=== PATIENT | female | born 1935 | race Caucasian/White ===

== ENCOUNTER 2021-03-30 23:58 | Inpatient (IN) | payer MEDICARE ==
--- NOTE | 2021-03-31 00:03 | ED ---
Recheck HPI - General Stated Complaint: Tachycardia Time Seen by Provider: 03/31/21 00:02 Source: RN notes reviewed, old records reviewed Limitations: no limitations - History of Present Illness Initial Comments: This is a 85-year-old female to the ER for evaluation. Patient presents today for evaluation regards to recheck and reevaluation, patient has recent diagnosis of atrial fibrillation, she is on anticoagulation presented for A. fib today but was having also runs of ventricular tachycardia prior hospital. Patient presents here on amiodarone in normal sinus rhythm. Patient herself is without current complaint now. MD Complaint: other (Patient with runs of ventricular tachycardia) -: hour(s) Initial Visit For: other (Not feeling well, palpitations) Returns Today for: other (Abnormal heart rate) Symptoms Since Prior Visit: no new symptoms Context: other (Ventricular tachycardia is resolved here) Associated Symptoms: shortness of breath, malaise Treatments Prior to Arrival: other medications Review of Systems ROS Statement: Those systems with pertinent positive or pertinent negative responses have been documented in the HPI. ROS Other: All systems not noted in ROS Statement are negative. General Exam General appearance: alert, in no apparent distress Head exam: Present: atraumatic, normocephalic, normal inspection Eye exam: Present: normal appearance, PERRL, EOMI. Absent: scleral icterus, conjunctival injection, periorbital swelling ENT exam: Present: normal exam, mucous membranes moist Neck exam: Present: normal inspection. Absent: tenderness, meningismus, lymphad enopathy Respiratory exam: Present: normal lung sounds bilaterally. Absent: respiratory distress, wheezes, rales, rhonchi, stridor Cardiovascular Exam: Present: regular rate, normal rhythm, normal heart sounds. Absent: systolic murmur, diastolic murmur, rubs, gallop, clicks GI/Abdominal exam: Present: soft, normal bowel sounds. Absent: distended, tenderness, guarding, rebound, rigid Extremities exam: Present: normal inspection, full ROM, normal capillary refill. Absent: tenderness, pedal edema, joint swelling, calf tenderness Back exam: Present: normal inspection Neurological exam: Present: alert, oriented X3, CN II-XII intact Psychiatric exam: Present: normal affect, normal mood Skin exam: Present: warm, dry, intact, normal color. Absent: rash Course Vital Signs 03/31/21 03/31/21 00:01 00:10 Temperature 98.0 F Pulse Rate 60 Respiratory 16 28 H Rate Blood Pressure 112/48 O2 Sat by Pulse 100 Oximetry - Reevaluation(s) Reevaluation #1: 03/31/21 00:35 Medical record is reviewed 03/31/21 00:35 Transfer paperwork is reviewed Reevaluation #2: 03/31/21 00:35 Patient currently asymptomatic, no complaints no chest pain - Consultations Consultation #1: Spoke with Dr. Gandhi who agrees to admit the patient Medical Decision Making - Medical Decision Making 85 female DF for evaluation. Patient has atrial fibrillation with recent runs of ventricular tachycardia currently in normal sinus rhythm. Patient will be admitted on continuation of amiodarone and cardiology to see - EKG Data -: EKG Interpreted by Me (EKG shows sinus rhythm 60 AZ 174 QRS 90 QTC 446) Disposition Clinical Impression: Ventricular tachycardia, Atrial fibrillation Disposition: ADMITTED IP TO THIS HOSP Condition: Good Is patient prescribed a controlled substance at d/c from ED?: No Referrals: None,Stated [REFERRING] - 1-2 days
[2021-03-31] MEDS ORDERED: NITROGLYCERIN SL TABS 0.4 MG TAB SUBLINGUAL PRN (00:36)
[2021-03-31] MEDS ORDERED: NALOXONE 0.4 MG/ML 1 ML VIAL IV PRN (00:36)
[2021-03-31] MEDS ORDERED: MORPHINE SULFATE 4 MG/ML SYRINGE IV PRN (00:36)
[2021-03-31] MEDS: DEXTROSE 5% IN WATER 250 ML with AMIODARONE 300 MG IV ONE (01:30)
[2021-03-31] MEDS ORDERED: HEPARIN SODIUM 1,000 UN/ML (10ML VL) IV PRN ×2 (03:00→03:39)
[2021-03-31] MEDS ORDERED: HEPARIN SODIUM 1,000 UN/ML (10ML VL) IV ONE (03:00)
[2021-03-31] MEDS ORDERED: HEPARIN SOD,PORK IN 0.45% NACL 25,000 UNIT in 0.45% NACL 1 250ML.BAG IV SCH (03:00)
--- NOTE | 2021-03-31 03:40 | P.HPIM ---
History of Present Illness H&P Date: 03/31/21 The patient is a 85-year-old female with a PMH of Chelsi Cody was transferred from [facility] where she had presented earlier tonight with complaints of sudden onset of shortness of breath. Patient reports that she had been in her usual state of health until about 6 PM tonight when she suddenly developed new chest breath. She denied ever having such symptoms in the past and became alarmed when it persisted for several minutes, at which time she activated EMS. The patient was noted to be in V. tach for which she was given amiodarone. The patient was subsequently transferred for cardiology evaluation. She underwent an extensive evaluation in the [facility] which was all reviewed with WBC count 7.2, hemoglobin 10.1, platelets 220, glucose 121, BUN 46, creatinine 1.4, sodium 136, potassium 3.8, chloride 102, CO2 18, magnesium 1.5, and troponin T 0.03. At time of interview, the patient reports that her shortness of breath had resolved soon after arriving at [facility] and has not recurred since. She reported feeling back to her baseline and denied any active complaints. She denied chest discomfort, nausea, vomiting, and dizziness. Also denied fever, chills, cough. Denied weakness, numbness, tingling, visual disturbance. EKG performed at our facility revealed normal sinus rhythm at 60 bpm with voltage criteria for LVH and T-wave inversions in leads V1 and V2. Laboratory evaluation was remarkable for troponin of 0.111. Review of systems: Pertinent positives and negatives as discussed in HPI, a complete review of systems was performed and all other systems are negative. Physical examination: General: non toxic, no distress, appears at stated age, normal weight Derm: no unusual rashes/lesions no unusual ecchymoses, warm, dry Head: atraumatic, normocephalic, symmetric Eyes: EOMI, no lid lag, anicteric sclera, pupils equal round reactive to light ENT: Nose and ears atraumatic, no thrush, no pharyngeal erythema Neck: No thyromegaly, no cervical lymphadenopathy, trachea midline, supple Mouth: no lip lesion, mucus membranes moist Cardiovascular: S1S2 reg, no murmur, positive posterior tibial pulse bilateral, no edema, capillary refill less than 2 seconds Lungs: CTA bilateral, no rhonchi, no rales , no accessory muscle use Abdominal: soft, nontender to palpation, no guarding, no appreciable organomegaly, normal bowel sounds Ext: no gross muscle atrophy, muscle strength 5 out of 5 in all 4 extremities grossly, no contractures, Neuro: CN II-XI grossly intact, light touch intact all 4 extremities, finger to nose within normal limits, Psych: Alert, oriented, appropriate affect Assessment/plan Symptomatic ventricular tachycardia -Continue with amiodarone infusion -Cardiology consult -Cardiac monitoring -Fall precautions Troponin elevation, may be secondary to ventricular tachycardia - unable to rule out non-ST elevation NH at this time -Patient took her last Eliquis dose on 03/30 9 AM -Continue with heparin infusion and aspirin at this time -Cardiac monitoring Chronic conditions: A. fib -Hold Eliquis at this time DVT prophylaxis -Heparin infusion The patient is admitted with an anticipated greater than 2 midnight stay for evaluation of V-tach CODE STATUS: No Code Discussed with: Patient Anticipated discharge date: 2-[address]: Home Past Medical History Past Medical History: Atrial Fibrillation, Hyperlipidemia, Hypertension, Thyroid Disorder Additional Past Surgical History / Comment(s): gallbladder removal - states 60yrs ago. Smoking Status: Light tobacco smoker Past Alcohol Use History: None Reported Past Drug Use History: None Reported - Past Family History Mother Family Medical History: Cancer Medications and Allergies Allergies Allergy/AdvReac Type Severity Reaction Status Date / Time No Known Allergies Allergy Verified 03/31/21 00:44 Physical Exam Vitals: Vital Signs Temp Pulse Resp BP Pulse Ox 03/31/21 01:39 67 17 105/55 100 03/31/21 00:10 28 H 03/31/21 00:01 98.0 F 60 16 112/48 100 Intake and Output 03/30/21 03/30/21 03/31/21 14:59 22:59 06:59 Other: Weight 58.967 kg Results Labs: Abnormal Lab Results - Last 24 Hours (Table) 03/31/21 Range/Units 00:53 Troponin I 0.111 H* (0.000-0.034) ng/mL
--- NOTE | 2021-03-31 03:58 | P.PN ---
Progress Note - Text Progress Note Date: 03/31/21 Advanced Care Planning: Diagnoses: Ventricle tachycardia Discussion: Person(s) present and participating in discussion: Patient Summary: Discussed the patient's goals of care in great detail. The patient reported she has previously filled out paperwork outlining her wishes. She reported that in the event of a cardiac arrest, that she would not like to undergo CPR or be placed on life support. She notes however that as long as she has a pulse, she would be okay with a trial of other forms of life support on a temporary basis. She notes that if she is unable to communicate, that she would like us to reach out to her family for further assistance. The patient understands that she experienced a cardiac arrhythmia and that if she was to undergo cardiac arrest, that she should be allowed to pass peacefully. Discussed the different forms of life support offered and the caveats of CPR. Will make the patient a No-Code with instructions. A total of 16 minutes of face to face time was spent discussing advanced care planning.
[2021-03-31 04:00] LABS: Basophils % (A) 1 %; Eosinophils # (A) 0.1 k/uL (0-0.7); Eosinophils % (A) 2 %; HCT 26.6 % (34.0-46.0); HGB 8.5 gm/dL (11.4-16.0); Hypochromasia Slight; Lymphocytes # (A) 0.9 k/uL (1.0-4.8); Lymphocytes % (A) 18 %; MCH 30.5 pg (25.0-35.0); MCHC 31.8 g/dL (31.0-37.0); MCV 95.9 fL (80.0-100.0); Mean Platelet Volume 8.7; Monocytes # (A) 0.3 k/uL (0-1.0); Monocytes % (A) 6 %; Neutrophils # (A) 3.7 k/uL (1.3-7.7); Neutrophils % (A) 72 %; Platelet Count 146 k/uL (150-450); RBC 2.77 m/uL (3.80-5.40); RDW 15.5 % (11.5-15.5); WBC 5.1 k/uL (3.8-10.6)
[2021-03-31 04:25] LABS: INR 1.1 (<1.2); Prothrombin Time 11.8 sec (9.0-12.0)
[2021-03-31 04:28] LABS: Partial Thromboplastin Time >200.0 sec (22.0-30.0)
[2021-03-31] MEDS: HEPARIN SOD,PORK IN 0.45% NACL 25,000 UNIT in 0.45% NACL 1 250ML.BAG IV SCH (05:52)
[2021-03-31] MEDS: AMIODARONE 450 MG in DEXTROSE 5% IN WATER 250 ML IV SCH ×2 (09:11)
[2021-03-31] MEDS ORDERED: ALPRAZolam 0.5 MG TAB PO PRN (09:20)
[2021-03-31] MEDS ORDERED: ALPRAZolam 0.25 MG TAB PO PRN (09:20)
[2021-03-31 09:36] LABS: Calcium 8.8 mg/dL (8.4-10.2); Magnesium 2.1 mg/dL (1.6-2.3); Potassium 4.4 mmol/L (3.5-5.1)
[2021-03-31] MEDS: METOPROLOL SUCCINATE (ER) 50 MG TAB.ER.24H PO SCH (10:01)
[2021-03-31] MEDS: ATORVASTATIN 20 MG TAB PO SCH (10:01)
--- NOTE | 2021-03-31 11:01 | ECHOF ---
Referral Reason:as, vt MEASUREMENTS -------- HEIGHT: 162.6 cm WEIGHT: 59.0 kg BP: IVSd: 1.5 cm (0.6 - 1.1) LVIDd: 3.6 cm (3.9 - 5.3) LVPWd: 1.4 cm (0.6 - 1.1) IVSs: 2.0 cm LVIDs: 2.1 cm LVPWs: 1.9 cm Ao Diam: 3.0 cm (2.0 - 3.7) AV Cusp: 1.3 cm (1.5 - 2.6) LA Diam: 3.4 cm (2.7 - 3.8) AV maxP.85 mmHg AV meanP.22 mmHg RAP: 5.00 mmHg RVSP: 32.45 mmHg FINDINGS -------- Limited Study The left ventricular size is normal. There is moderate concentric left ventricular hypertrophy. O verall left ventricular systolic function is normal with, an EF between 55 - 60 %. Aortic valve is trileaflet and is severely thickened. There is moderate aortic stenosis present. Peak/mean gradient across the Aortic Valve is 52.85mmHg / 31.22mmHg. There is no pericardial effusion. CONCLUSIONS -------- 1. The left ventricular size is normal. 2. There is moderate concentric left ventricular hypertrophy. 3. Overall left ventricular systolic function is normal with, an EF between 55 - 60 %. 4. Aortic valve is trileaflet and is severely thickened. 5. There is moderate aortic stenosis present. 6. Peak/mean gradient across the Aortic Valve is 52.85mmHg / 31.22mmHg. 7. There is no pericardial effusion. CUSTOMER SERVICES SUPERVISOR: Sveta Elmore, [facility]
[2021-03-31 12:38] LABS: Glucose,Whole Blood 89 mg/dL (75-99)
--- NOTE | 2021-03-31 13:07 | P.CRDCN ---
History of Present Illness History of present illness: HISTORY OF PRESENTING ILLNESS This is a pleasant 85-year-old female past medical history significant for paroxysmal atrial fibrillation on long-term anticoagulation with Eliquis, h ypertension, dyslipidemia, aortic stenosis and hypothyroidism. She follows in the office with Dr. Guzman. We have been asked to see in consultation for atrial fibrillation and ventricular tachycardia. She presented initially to [facility] after having an acute onset of shortness of breath and palpitations. She states this started yesterday at around 6 PM. She denies any associated chest discomfort and did have some mild dizziness. According to ER documentation the patient was noted to be having runs of nonsustained ventricular tachycardia per EMS and was started on IV amiodarone infusion at [facility] and transferred here for further evaluation. Since arriving here in the emergency department she has had no further episodes of ventricular tachycardia. Initial EKG reveals sinus mechanism heart rate of 60, LVH, T-wave inversions noted in the high lateral leads as well as septal leads. She did have an EKG performed in the office earlier this month and at that time she was in sinus rhythm and did have nonspecific mild T-wave abnormalities in the high lateral and septal leads. EKG from [facility] revealed she was having intermittent episodes of wide complex tachycardia longest run being documented at 9 beats. Laboratory data from [facility] reviewed, creatinine 1.4, potassium 3.8, magnesium 1.5, troponin negative 1, TSH 6.93 and free T4 1 0.4. She was given magnesium supplementation, potassium supplementation and amiodarone infusion and then transferred here. She is seen and examined sitting up in bed in no acute distress. She denies any further symptoms of shortness of breath or palpitations. Repeat laboratory data here reviewed, WBC 5.1, hemoglobin 8.5, platelets 146, troponin 0.111 and 0.155. She has been initiated on heparin infusion. Home cardiac medications include Eliquis 5 mg twice a day last dose was yesterday morning, Lasix 20 mg twice a day, aspirin 81 mg daily, Toprol 50 mg daily, rosuvastatin 10 mg daily, daily magnesium and potassium supplementation. Echocardiogram obtained in the office 03/02/2021 revealed preserved LV systolic function with ejection fraction 55%, mild concentric LVH, mild aortic regurgitation and moderate aortic stenosis with a mean gradient across the valve of 23 mmHg and a valve area of 1.4 cm, mild mitral regurgitation and mild tricuspid regurgitation. REVIEW OF SYSTEMS At the time of my exam: CONSTITUTIONAL: Denies fever or chills. CARDIOVASCULAR: Denies chest pain, shortness of breath, orthopnea, PND or palpitations. RESPIRATORY: Denies cough. GASTROINTESTINAL: Denies abdominal pain, diarrhea, constipation, nausea or vomiting. MUSCULOSKELETAL: Denies myalgias. NEUROLOGIC: Denies numbness, tingling, headacbe or weakness. ENDOCRINE: Denies fatigue, weight change, polydipsia or polyurina. GENITOURINARY: Denies burning, hematuria or urgency with micturation. HEMATOLOGIC: Denies history of anemia or bleeding. PHYSICAL EXAMINATION Blood pressure 123/51 heart rate 60 afebrile and maintaining oxygen saturation on nasal cannula. CONSTITUTIONAL: No apparent distress. HEENT: Head is normocephalic. Pupils are equal, round. Sclerae anicteric. Mucous membranes of the mouth are moist. No JVD. No carotid bruit. CHEST EXAMINATION: Lungs are clear to auscultation. No chest wall tenderness is noted on palpation or with deep breathing. HEART EXAMINATION: Regular rate and rhythm. S1, S2 heard. Systolic ejection murmur at the base, no gallops or rub. ABDOMEN: Soft, nontender. Positive bowel sounds. EXTREMITIES: 2+ peripheral pulses, no lower extremity edema and no calf tenderness. NEUROLOGIC EXAMINATION: Patient is awake, alert and oriented x3. ASSESSMENT Shortness of breath and palpitations. Non-sustained ventricular tachycardia Paroxysmal atrial fibrillation on eliquis, currently in SR. NSTEMI Anemia Hypertension Dyslipidemia Aortic stenosis, moderate Hypothyroidism PLAN Continue amiodaroine infusion and then PO thereafter. Obtain repeat troponin to assess trend. Recommend proceeding with cardiac catheterization. I have discussed the risks, benefits and alternative therapies for the above-mentioned procedure and for both sedation/analgesia as well as necessary blood product administration, if indicated, as they pertain to this patient. The patient has indicated understanding and acceptance of the risks and procedures discussed. Questions have been answered appropriately and she is agreeable to move forward with the above stated procedure. Questions have been answered appropriately and she is agreeable to move forward with the above stated procedure. Continue heparin infusion. NPO after midnight tonight. Further recommendations to follow based on clinical course. Thank you kindly for this consultation. Nurse Practitioner note has been reviewed, I agree with a documented findings and plan of care. Patient was seen and examined. Past Medical History Past Medical History: Atrial Fibrillation, Hyperlipidemia, Hypertension, Thyroid Disorder Additional Past Surgical History / Comment(s): gallbladder removal - states 60yrs ago. Smoking Status: Light tobacco smoker Past Alcohol Use History: None Reported Past Drug Use History: None Reported - Past Family History Mother Family Medical History: Cancer Medications and Allergies Home Medications Medication Instructions Recorded Confirmed Type Apixaban [Eliquis] 5 mg PO BID 03/31/21 03/31/21 History Aspirin EC [Ecotrin Low Dose] 81 mg PO DAILY 03/31/21 03/31/21 History Furosemide [Lasix] 20 mg PO BID 03/31/21 03/31/21 History Levothyroxine Sodium [Synthroid] 75 mcg PO DAILY 03/31/21 03/31/21 History Magnesium 250 mg PO DAILY 03/31/21 03/31/21 History Metoprolol Succinate (ER) [Toprol 50 mg PO DAILY 03/31/21 03/31/21 History Xl] Potassium Chloride ER [K-Dur 20] 20 meq PO BID 03/31/21 03/31/21 History Rosuvastatin [Crestor] 10 mg PO DAILY 03/31/21 03/31/21 History Sertraline [Zoloft] 25 mg PO DAILY 03/31/21 03/31/21 History Allergies Allergy/AdvReac Type Severity Reaction Status Date / Time No Known Allergies Allergy Verified 03/31/21 08:16 Physical Exam Vitals: Vital Signs Temp Pulse Resp BP Pulse Ox 03/31/21 06:20 60 18 123/51 99 03/31/21 05:40 97.8 F 58 L 16 123/51 100 03/31/21 03:26 61 16 100/60 100 03/31/21 01:39 67 17 105/55 100 03/31/21 00:10 28 H 03/31/21 00:01 98.0 F 60 16 112/48 100 Intake and Output 03/30/21 03/31/21 03/31/21 22:59 06:59 14:59 Intake Total 8.255 Balance 8.255 Intake: Intake, IV Titration 8.255 Amount Heparin Sod,Pork in 0.45% 8.255 NaCl 25,000 unit In 0.45 % NaCl 1 250ml.bag @ 12 UNITS/KG/HR 7.076 mls/hr IV .Q24H [facility] Rx#: [id number] Other: Weight 58.967 kg Results 03/31/21 03:22 03/31/21 08:15 Cardiac Enzymes 03/31/21 03/31/21 Range/Units 00:53 03:22 Troponin I 0.111 H* 0.155 H* (0.000-0.034) ng/mL Coagulation 03/31/21 Range/Units 03:22 PT 11.8 (9.0-12.0) sec APTT >200.0 H* (22.0-30.0) sec CBC 03/31/21 Range/Units 03:22 WBC 5.1 (3.8-10.6) k/uL RBC 2.77 L (3.80-5.40) m/uL Hgb 8.5 L (11.4-16.0) gm/dL Hct 26.6 L (34.0-46.0) % Plt Count 146 L (150-450) k/uL Current Medications Generic Name Dose Route Start Last Admin Trade Name Freq PRN Reason Stop Dose Admin Aspirin 325 mg 04/01/21 09:00 Aspirin 325 Mg Tab PO DAILY [facility] Heparin Sodium (Porcine) 0 unit 03/31/21 03:39 Heparin Sodium 1,000 Un/Ml (10ml Vl) IV PER PROTOCOL PRN Low PTT Protocol Heparin Sodium/Sodium Chloride 250 mls @ 7.076 mls/hr 03/31/21 03:45 03/31/21 05:52 25,000 unit/ Sodium Chloride IV 9 units/kg/hr .Q24H [facility] 5.307 mls/hr Administration Protocol 12 UNITS/KG/HR Amiodarone HCl 450 mg/ 250 mls @ 16.667 mls/hr 03/31/21 15:00 Dextrose/Water IV 04/01/21 08:59 .Q15H [facility] Protocol 0.5 MG/MIN Morphine Sulfate 4 mg 03/31/21 00:36 Morphine Sulfate 4 Mg/Ml Syringe IV Q4HR PRN Chest Pain Naloxone HCl 0.2 mg 03/31/21 00:36 Naloxone 0.4 Mg/Ml 1 Ml Vial IV Q2M PRN Opioid Reversal Nitroglycerin 0.4 mg 03/31/21 00:36 Nitroglycerin Sl Tabs 0.4 Mg Tab SUBLINGUAL Q5M PRN Chest Pain Intake and Output 03/30/21 03/31/21 03/31/21 22:59 06:59 14:59 Intake Total 8.255 Balance 8.255 Intake: Intake, IV Titration 8.255 Amount Heparin Sod,Pork in 0.45% 8.255 NaCl 25,000 unit In 0.45 % NaCl 1 250ml.bag @ 12 UNITS/KG/HR 7.076 mls/hr IV .Q24H [facility] Rx#: [id number] Other: Weight 58.967 kg 03/31/21 03:22
--- NOTE | 2021-03-31 17:21 | P.PN ---
Subjective Progress Note Date: 03/31/21 Principal diagnosis: chest pain Patient is an 85-year-old female past medical history of A. fib on Eliquis, hypertension, and dyslipidemia who was transferred to our facility from [facility] secondary to ventricular tachycardia. She was started on IV amiodarone and transferred here for cardiology evaluation. Initial laboratory analysis showed BUN 46, creatinine 1.4, magnesium 1.5, and troponin of 0.03. She was admitted and continued on IV amiodarone. She's been seen by cardiology who plans for cardiac cath. Patient seen and examined at bedside. She denies any chest pain, shortness of breath, palpitations, lightheadedness, or dizziness at this time. General: non toxic, no distress, appears at stated age Derm: warm, dry Head: atraumatic, normocephalic, symmetric Eyes: EOMI, no lid lag, anicteric sclera Mouth: no lip lesion, mucus membranes moist Cardiovascular: S1S2 reg with grade 2 systolic ejection murmur, positive posterior tibial pulse bilateral, Lungs: CTA bilateral, no rhonchi, no rales , no accessory muscle use Abdominal: soft, nontender to palpation, no guarding, no appreciable organomegaly Ext: no gross muscle atrophy, no edema, no contractures Neuro: CN II-XI grossly intact, no focal neuro deficits Psych: Alert, oriented, appropriate affect Ventricular tachycardia NSTEMI, may be elevated due to V tach Paroxysmal atrial fibrillation, currently in normal sinus rhythm Hypertension, controlled Dyslipidemia -Continue IV amiodarone cardiology recommendations appreciated -Echocardiogram with ejection fraction 55% and moderate aortic stenosis -Potassium normal -Cardiology recommendations -She'll be having cath in a.m. - heparin gtt, eliquis on hold - ASA - lipitor - metoprolol - lasix on hold with prerenal azotemia and plan for cardiac cath in a.m. Hypomagnesium - recheck in AM Hypothyroidism - synthroid Anemia -Recheck CBC in a.m. -Check iron studies, B12, and folic acid Hyperchloremic metabolic acidosis -Limit chloride IV fluids -Repeat in a.m. DVT prophylaxis: heparin gtt Discussed with: patient, nursing Anticipated discharge: 1-[address]: home A total of 32 minutes was spent on the care of this complex patient more than 50% of the time was spent in counseling and care coordination. Objective - Vital Signs Vital signs: Vital Signs Temp 98.0 F 03/31/21 12:50 Pulse 58 L 03/31/21 12:50 Resp 20 03/31/21 12:50 BP 119/54 03/31/21 12:50 Pulse Ox 98 03/31/21 12:50 Intake & Output 03/30/21 03/31/21 03/31/21 18:59 06:59 18:59 Intake Total 8.255 69.441 Balance 8.255 69.441 Weight 58.967 kg Intake: Intake, IV Titration 8.255 69.441 Amount Heparin Sod,Pork in 0.45% 8.255 NaCl 25,000 unit In 0.45 % NaCl 1 250ml.bag @ 12 UNITS/KG/HR 7.076 mls/hr IV .Q24H [facility] Rx#: [id number] Heparin Sod,Pork in 0.45% 69.441 NaCl 25,000 unit In 0.45 % NaCl 1 250ml.bag @ 12 UNITS/KG/HR 7.076 mls/hr IV .Q24H [facility] Rx#: [id number] - Labs CBC & Chem 7: 03/31/21 03:22 03/31/21 08:15 Labs: Abnormal Lab Results - Last 24 Hours (Table) 03/31/21 03/31/21 03/31/21 Range/Units 00:53 03:22 03:22 RBC 2.77 L (3.80-5.40) m/uL Hgb 8.5 L (11.4-16.0) gm/dL Hct 26.6 L (34.0-46.0) % Plt Count 146 L (150-450) k/uL Lymphocytes # 0.9 L (1.0-4.8) k/uL APTT (22.0-30.0) sec Sodium (137-145) mmol/L Chloride (98-107) mmol/L Carbon Dioxide (22-30) mmol/L BUN (7-17) mg/dL Troponin I 0.111 H* 0.155 H* (0.000-0.034) ng/mL 03/31/21 03/31/21 03/31/21 Range/Units 03:22 08:15 08:15 RBC (3.80-5.40) m/uL Hgb (11.4-16.0) gm/dL Hct (34.0-46.0) % Plt Count (150-450) k/uL Lymphocytes # (1.0-4.8) k/uL APTT >200.0 H* 36.1 H (22.0-30.0) sec Sodium 136 L (137-145) mmol/L Chloride 112 H (98-107) mmol/L Carbon Dioxide 16 L (22-30) mmol/L BUN 34 H (7-17) mg/dL Troponin I (0.000-0.034) ng/mL 03/31/21 03/31/21 Range/Units 08:15 12:50 RBC (3.80-5.40) m/uL Hgb (11.4-16.0) gm/dL Hct (34.0-46.0) % Plt Count (150-450) k/uL Lymphocytes # (1.0-4.8) k/uL APTT (22.0-30.0) sec Sodium (137-145) mmol/L Chloride (98-107) mmol/L Carbon Dioxide (22-30) mmol/L BUN (7-17) mg/dL Troponin I 0.165 H* 0.144 H* (0.000-0.034) ng/mL
[2021-03-31] MEDS: AMIODARONE 200 MG TAB PO SCH (20:06)
[2021-03-31 22:45] LABS: Chol/HDL Ratio 3.07
[2021-03-31] MEDS ORDERED: SODIUM CHLORIDE 0.9% 1,000 ML in EMPTY BAG 1 BAG IV ONE (23:59)
[2021-04-01] MEDS: AMIODARONE 450 MG in DEXTROSE 5% IN WATER 250 ML IV SCH ×2 (04:58)
[2021-04-01] MEDS: ATORVASTATIN 20 MG TAB PO SCH (05:28)
[2021-04-01] MEDS: METOPROLOL SUCCINATE (ER) 50 MG TAB.ER.24H PO SCH (05:29)
[2021-04-01] MEDS: LEVOTHYROXINE 75 MCG TAB PO SCH (05:29)
[2021-04-01] MEDS: SERTRALINE 25 MG TAB PO SCH (05:29)
[2021-04-01] MEDS: AMIODARONE 200 MG TAB PO SCH (05:29)
[2021-04-01] MEDS: HEPARIN SOD,PORK IN 0.45% NACL 25,000 UNIT in 0.45% NACL 1 250ML.BAG IV SCH (05:30)
[2021-04-01] MEDS ORDERED: ASPIRIN 325 MG TAB PO ONE (06:00)
[2021-04-01] MEDS ORDERED: ATORVASTATIN 80 MG TAB PO ONE (06:00)
[2021-04-01] MEDS ORDERED: HEPARIN SODIUM,PORCINE 2,500 UNIT in SODIUM CHLORIDE 0.9% 250 ML IRRIGATION PRN (07:00)
[2021-04-01] MEDS ORDERED: HEPARIN SODIUM,PORCINE 10,000 UNIT in SODIUM CHLORIDE 0.9% 1,000 ML IRRIGATION PRN (07:00)
[2021-04-01 07:43] LABS: Basophils % (A) 1 %; Eosinophils # (A) 0.2 k/uL (0-0.7); Eosinophils % (A) 4 %; HCT 29.3 % (34.0-46.0); HGB 9.4 gm/dL (11.4-16.0); Lymphocytes # (A) 0.9 k/uL (1.0-4.8); Lymphocytes % (A) 18 %; MCH 30.2 pg (25.0-35.0); MCHC 32.2 g/dL (31.0-37.0); MCV 93.7 fL (80.0-100.0); Mean Platelet Volume 8.4; Monocytes # (A) 0.2 k/uL (0-1.0); Monocytes % (A) 4 %; Neutrophils # (A) 3.8 k/uL (1.3-7.7); Neutrophils % (A) 72 %; Platelet Count 183 k/uL (150-450); RBC 3.13 m/uL (3.80-5.40); RDW 15.7 % (11.5-15.5); WBC 5.3 k/uL (3.8-10.6)
[2021-04-01] MEDS ORDERED: MIDAZOLAM 2 MG/2 ML VIAL IVP ONE (07:55)
[2021-04-01] MEDS ORDERED: LIDOCAINE 1% INJ 10MG/ML (20 ML MDV) SQ ONE (07:56)
[2021-04-01] MEDS ORDERED: IV FLUID CONTINUATION 1,000 ML IV ONE (07:57)
[2021-04-01] MEDS ORDERED: VERAPAMIL SYRINGE (5 MG/10 ML) INTRAARTER ONE (07:59)
[2021-04-01 08:00] LABS: INR 0.9 (<1.2); Partial Thromboplastin Time 49.7 sec (22.0-30.0); Prothrombin Time 10.1 sec (9.0-12.0)
[2021-04-01 08:23] LABS: Albumin 3.4 g/dL (3.5-5.0); Calcium 9.1 mg/dL (8.4-10.2); Phosphorus 3.1 mg/dL (2.5-4.5); Potassium 4.6 mmol/L (3.5-5.1); Total Bilirubin 1.3 mg/dL (0.2-1.3); Total Protein 5.8 g/dL (6.3-8.2)
[2021-04-01] MEDS ORDERED: IOPAMIDOL-370 100ML BTL INJ ONE (08:25)
[2021-04-01] MEDS ORDERED: SODIUM CHLORIDE 0.9% 1,000 ML IV SCH (08:45)
[2021-04-01] MEDS ORDERED: ASPIRIN 325 MG TAB PO SCH (09:00)
[2021-04-01] MEDS ORDERED: fentaNYL (PF) 50 MCG/ML 2 ML AMP ONE (09:52)
[2021-04-01] MEDS ORDERED: BENZOCAINE SPRAY 1 CAN TOPICAL ONE (10:06)
[2021-04-01] MEDS ORDERED: IV FLUID CONTINUATION 600 ML IV ONE (10:06)
[2021-04-01] MEDS ORDERED: FLUMAZENIL 0.1 MG/ML 5 ML VIAL IVP ONE (11:25)
[2021-04-01] MEDS ORDERED: MIDAZOLAM 2 MG/2 ML VIAL IV ONE (11:45)
[2021-04-01] MEDS ORDERED: fentaNYL (PF) 50 MCG/ML 2 ML AMP IV ONE (11:45)
--- NOTE | 2021-04-01 15:53 | P.PN ---
Subjective Progress Note Date: 04/01/21 Principal diagnosis: chest pain Patient is an 85-year-old female past medical history of A. fib on Eliquis, hypertension, and dyslipidemia who was transferred to our facility from [facility] secondary to ventricular tachycardia. She was started on IV amiodarone and transferred here for cardiology evaluation. Initial laboratory analysis showed BUN 46, creatinine 1.4, magnesium 1.5, and troponin of 0.03. She was admitted and continued on IV amiodarone. She's been seen by cardiology who plans for cardiac cath. Patient seen and examined at bedside. She denies any chest pain, shortness of breath, palpitations, lightheadedness, or dizziness at this time. General: non toxic, no distress, appears at stated age Derm: warm, dry Head: atraumatic, normocephalic, symmetric Eyes: EOMI, no lid lag, anicteric sclera Mouth: no lip lesion, mucus membranes moist Cardiovascular: S1S2 reg with grade 2 systolic ejection murmur, positive posterior tibial pulse bilateral, Lungs: CTA bilateral, no rhonchi, no rales , no accessory muscle use Abdominal: soft, nontender to palpation, no guarding, no appreciable organomegaly Ext: no gross muscle atrophy, no edema, no contractures Neuro: CN II-XI grossly intact, no focal neuro deficits Psych: Alert, oriented, appropriate affect Ventricular tachycardia NSTEMI, may be elevated due to V tach Paroxysmal atrial fibrillation, currently in normal sinus rhythm Hypertension, controlled Dyslipidemia Aortic stenosis - cardiology recommendations appreciated: cath with no need for intervention, await final GILBERT results -Echocardiogram with ejection fraction 55% and moderate aortic stenosis -Potassium normal -Cardiology recommendations - eliquis - ASA - lipitor - metoprolol - lasix on hold with prerenal azotemia and plan for cardiac cath in a.m. Hypomagnesium, resolved Hypothyroidism - synthroid Anemia -Recheck CBC in a.m, stable -Iron studies, B12, and folic acid pending - outpatient GI eval if needed Hyperchloremic metabolic acidosis, improving -Limit chloride IV fluids -Repeat in a.m. DVT prophylaxis: heparin gtt Discussed with: patient, nursing Anticipated discharge: 1-[address]: home A total of 32 minutes was spent on the care of this complex patient more than 50% of the time was spent in counseling and care coordination. Objective - Vital Signs Vital signs: Vital Signs Temp 97.6 F 04/01/21 03:14 Pulse 47 L 04/01/21 11:55 Resp 13 04/01/21 11:55 BP 110/53 04/01/21 11:55 Pulse Ox 97 04/01/21 11:55 Intake & Output 03/31/21 04/01/21 04/01/21 18:59 06:59 18:59 Intake Total 309.441 150 Balance 309.441 150 Weight 59.8 kg Intake: IV 150 Intake, IV Titration 69.441 Amount Heparin Sod,Pork in 0.45% 69.441 NaCl 25,000 unit In 0.45 % NaCl 1 250ml.bag @ 12 UNITS/KG/HR 7.076 mls/hr IV .Q24H [facility] Rx#: [id number] Oral 240 0 Other: Voiding Method Toilet Toilet Toilet # Voids 2 - Labs CBC & Chem 7: 04/01/21 06:37 04/01/21 06:37 Labs: Abnormal Lab Results - Last 24 Hours (Table) 03/31/21 04/01/21 04/01/21 Range/Units 23:18 06:37 06:37 RBC 3.13 L (3.80-5.40) m/uL Hgb 9.4 L (11.4-16.0) gm/dL Hct 29.3 L (34.0-46.0) % RDW 15.7 H (11.5-15.5) % Lymphocytes # 0.9 L (1.0-4.8) k/uL APTT 54.9 H (22.0-30.0) sec Chloride 113 H (98-107) mmol/L Carbon Dioxide 19 L (22-30) mmol/L BUN 28 H (7-17) mg/dL Creatinine 1.09 H (0.52-1.04) mg/dL Total Protein 5.8 L (6.3-8.2) g/dL Albumin 3.4 L (3.5-5.0) g/dL 04/01/21 Range/Units 06:37 RBC (3.80-5.40) m/uL Hgb (11.4-16.0) gm/dL Hct (34.0-46.0) % RDW (11.5-15.5) % Lymphocytes # (1.0-4.8) k/uL APTT 49.7 H (22.0-30.0) sec Chloride (98-107) mmol/L Carbon Dioxide (22-30) mmol/L BUN (7-17) mg/dL Creatinine (0.52-1.04) mg/dL Total Protein (6.3-8.2) g/dL Albumin (3.5-5.0) g/dL
--- NOTE | 2021-04-01 16:07 | P.CONS ---
History of Present Illness - Reason for Consult Consult date: 04/01/21 Anemia Requesting physician: Eddy Burns - Chief Complaint Shortness of breath - History of Present Illness This is a pleasant 85-year-old white female who presented to the emergency department yesterday with complaints of shortness of breath. She was initially seen and referred [facility] and transferred here for further evaluation for palpitations and tachycardia. She has a past medical history significant for atrial fibrillation on Eliquis, hypertension, dyslipidemia, aortic stenosis, and hypothyroidism. The patient states she was recently started on the Eliquis about 5-6 weeks ago. She denies any rectal bleeding, black stools, melena. She denies any abdominal pain, nausea, or vomiting. She denies any previous history of peptic ulcer disease, states her last colonoscopy was approximately 5 years ago significant for polyps. She has no history of prior GI bleed. She did state that she fell about 3 weeks ago, she has a large hematoma on her left hip and thigh. Today she underwent a GILBERT and cardiac catheterization, no reports available at this time of dictation. Patient states she had some narrowing and she is awaiting cardiology's recommendations. On admission she was noted to have a hemoglobin of 8.5. Review of Systems REVIEW OF SYSTEMS: CARDIOPULMONARY: No chest pain or shortness of breath. Gastrointestinal: No abdominal pain. No nausea or vomiting. No hematemesis, coffee-ground emesis. No rectal bleeding, or melena. GENITOURINARY: No dysuria or hematuria. MUSCULOSKELETAL: Reports normal range of motion., Joint pain. SKIN: No rashes. No jaundice. ENDOCRINE: No chills, fevers. No excessive weight gain or loss. No polydipsia or polyuria. PSYCHIATRIC: Unremarkable. NEUROLOGY: No change in mental status. Denies dizziness, headache. ENT: Vision unremarkable. CONSTITUTIONAL: No recent weight loss. No fever, chills, night sweats. Past Medical History Past Medical History: Atrial Fibrillation, Hyperlipidemia, Hypertension, Thyroid Disorder History of Any Multi-Drug Resistant Organisms: None Reported Additional Past Surgical History / Comment(s): gallbladder removal - states 60yrs ago. Past Anesthesia/Blood Transfusion Reactions: No Reported Reaction Smoking Status: Light tobacco smoker Past Alcohol Use History: None Reported Past Drug Use History: None Reported - Past Family History Mother Family Medical History: Cancer Medications and Allergies Home Medications Medication Instructions Recorded Confirmed Type Apixaban [Eliquis] 5 mg PO BID 03/31/21 03/31/21 History Aspirin EC [Ecotrin Low Dose] 81 mg PO DAILY 03/31/21 03/31/21 History Furosemide [Lasix] 20 mg PO BID 03/31/21 03/31/21 History Levothyroxine Sodium [Synthroid] 75 mcg PO DAILY 03/31/21 03/31/21 History Magnesium 250 mg PO DAILY 03/31/21 03/31/21 History Metoprolol Succinate (ER) [Toprol 50 mg PO DAILY 03/31/21 03/31/21 History Xl] Potassium Chloride ER [K-Dur 20] 20 meq PO BID 03/31/21 03/31/21 History Rosuvastatin [Crestor] 10 mg PO DAILY 03/31/21 03/31/21 History Sertraline [Zoloft] 25 mg PO DAILY 03/31/21 03/31/21 History Allergies Allergy/AdvReac Type Severity Reaction Status Date / Time No Known Allergies Allergy Verified 03/31/21 08:16 Physical Exam Vitals: Vital Signs Temp Pulse Pulse Resp BP BP Pulse Ox 04/01/21 11:55 47 L 13 110/53 97 04/01/21 11:49 48 L 15 128/63 99 04/01/21 11:44 51 L 16 99 04/01/21 10:12 48 L 16 155/75 99 04/01/21 09:45 45 L 18 135/60 98 04/01/21 09:28 46 L 18 131/68 98 04/01/21 09:13 48 L 18 128/59 97 04/01/21 08:58 46 L 18 126/61 98 04/01/21 08:43 46 L 18 128/61 97 04/01/21 03:14 97.6 F 53 L 18 109/57 93 L 04/01/21 02:00 18 03/31/21 23:32 97.7 F 62 18 120/58 97 03/31/21 20:00 18 03/31/21 19:51 97.9 F 59 L 18 117/63 100 03/31/21 15:00 58 L 18 Intake and Output 03/31/21 04/01/21 04/01/21 22:59 06:59 14:59 Intake Total 287.24 150 Balance 287.24 150 Intake: IV 150 Intake, IV Titration 47.24 Amount Heparin Sod,Pork in 0.45% 47.24 NaCl 25,000 unit In 0.45 % NaCl 1 250ml.bag @ 12 UNITS/KG/HR 7.076 mls/hr IV .Q24H [facility] Rx#: [id number] Oral 240 0 Other: Voiding Method Toilet Toilet Toilet # Voids 1 2 Weight 59.8 kg General appearance: The patient is alert, oriented, appears in no acute distress. HET: Head is normocephalic and atraumatic. Conjunctiva pink. Sclera anicteric. Neck: Supple without lymphadenopathy. Trachea midline. Heart: S1 S2. Regular rate and rhythm. Lungs: Clear to auscultation. Abdomen: Soft, nontender, nondistended with bowel sounds. No guarding or rigidity. Skin: No rashes. No jaundice. Extremities: Normal skin color and turgor. No pedal edema. Left hip and thigh with large area of ecchymosis/hematoma. Neurological: No focal deficits. Alert and oriented 3.. Results CBC & Chem 7: 04/01/21 06:37 04/01/21 06:37 Labs: Abnormal Lab Results - Last 24 Hours (Table) 03/31/21 04/01/21 04/01/21 Range/Units 23:18 06:37 06:37 RBC 3.13 L (3.80-5.40) m/uL Hgb 9.4 L (11.4-16.0) gm/dL Hct 29.3 L (34.0-46.0) % RDW 15.7 H (11.5-15.5) % Lymphocytes # 0.9 L (1.0-4.8) k/uL APTT 54.9 H (22.0-30.0) sec Chloride 113 H (98-107) mmol/L Carbon Dioxide 19 L (22-30) mmol/L BUN 28 H (7-17) mg/dL Creatinine 1.09 H (0.52-1.04) mg/dL Total Protein 5.8 L (6.3-8.2) g/dL Albumin 3.4 L (3.5-5.0) g/dL 04/01/21 Range/Units 06:37 RBC (3.80-5.40) m/uL Hgb (11.4-16.0) gm/dL Hct (34.0-46.0) % RDW (11.5-15.5) % Lymphocytes # (1.0-4.8) k/uL APTT 49.7 H (22.0-30.0) sec Chloride (98-107) mmol/L Carbon Dioxide (22-30) mmol/L BUN (7-17) mg/dL Creatinine (0.52-1.04) mg/dL Total Protein (6.3-8.2) g/dL Albumin (3.5-5.0) g/dL Assessment and Plan (1) Normochromic normocytic anemia Narrative/Plan: 85-year-old female who presented to the emergency department with shortness of breath. She has a past medical history atrial fibrillation on Eliquis, which she states she started 5-6 weeks ago. She was initially evaluated at [facility] and was noted to have runs of nonsustained ventricular tachyca rdia per EMS and started on IV amiodarone and transferred to [facility] for further cardiac evaluation. On admission she was noted to have a hemoglobin at 8.5, today was 9.4. The patient denies any abdominal pain, nausea, or vomiting. She denies any history of peptic ulcer disease or previous GI bleed. She denies any rectal bleeding, melena or black tarry stool. She states she does not take NSAIDs regularly, her last colonoscopy was approximately 5 years ago significant for colon polyps. She did state that she took a fall about 3 weeks ago and has a large hematoma on her left hip and thigh. She has no signs of GI bleed, likely dealing with anemia of chronic disease or possible other etiology may be related to the large hematoma noted on her left thigh. No plans on endoscopic evaluation at this time. Iron studies are pending. Current Visit: Yes Status: Acute Code(s): D64.9 - ANEMIA, UNSPECIFIED SNOMED Code(s): 96819418 (2) Hypertension Current Visit: Yes Status: Acute Code(s): I10 - ESSENTIAL (PRIMARY) HYPERTENSION SNOMED Code(s): 97090427 (3) Hyperlipidemia Current Visit: Yes Status: Acute Code(s): E78.5 - HYPERLIPIDEMIA, UNSPECIFIED SNOMED Code(s): 79576573 (4) Hypothyroid Current Visit: Yes Status: Acute Code(s): E03.9 - HYPOTHYROIDISM, UNSPECIFIED SNOMED Code(s): 67714994 (5) Atrial fibrillation Current Visit: Yes Status: Acute Code(s): I48.91 - UNSPECIFIED ATRIAL FIBRILLATION SNOMED Code(s): 29478983 Plan: 1. Continue symptomatic and supportive care 2. Iron studies ordered and pending 3. CBC daily, transfuse for hemoglobin less than 7 4. No signs of GI bleed, no plans on endoscopic evaluation at this time 5. Avoid NSAIDs 6. Continue medical and cardiology management 7. May continue anticoagulation Thank you for this consultation, we will continue to follow Dr. Patrica Freitas I agree with the dictator's note, documented as a scribe by Ingris Chacko.
[2021-04-01] MEDS: SODIUM CHLORIDE 0.45% 1,000 ML IV SCH (19:15)
[2021-04-01] MEDS: APIXABAN 5 MG TAB PO SCH (19:48)
[2021-04-01 20:07] LABS: % Iron Saturation 29.17 (12.00-45.00); Chol/HDL Ratio 2.75; LDL Cholesterol,Calculated 74.8 mg/dL (0.0-131.0); VLDL Calculation 21.2 mg/dL (5.00-40.00)
[2021-04-01 20:15] LABS: Ferritin 103.5 ng/mL (10.0-291.0)
--- NOTE | 2021-04-01 21:29 | CC ---
CARDIAC CATHETERIZATION REPORT DATE OF SERVICE: 04/01/2021 PROCEDURE: Coronary angiography. PERFORMED BY: Dr. Eric Guzman. Moderate conscious sedation time was 31 minutes. Patient was administered Versed. Oxygen saturation, hemodynamics and EKG were monitored closely. CLINICAL INFORMATION: Mrs. Nilda Ansari is an 85-year-old elderly lady with a history of moderate aortic stenosis and paroxysmal atrial fib who came into the hospital with chest pain and shortness of breath and apparently had a non documented but visualized nonsustained ventricular tachycardia for which she was on amiodarone. After arrival to the hospital, she had a mild troponin elevation, but no evidence of any ventricular tachycardia. She was advised cardiac catheterization and transesophageal echo. Rationale, risks, benefits, options were explained to the patient. PROCEDURE NOTE: Under local anesthesia and strict aseptic precautions, a 6-Kazakh introducer was placed in the right radial artery. Using a JL3.5 and JR4 catheters, I performed coronary angiography. I could not cross the aortic valve. The patient will have a transesophageal echo later on today by Dr. De Jesus. CORONARY ANGIOGRAPHY FINDINGS: RIGHT CORONARY ARTERY: This vessel is probably dominant, totally occluded without much antegrade flow. There is a network of collaterals from the left system, more so from circumflex opacifying the distal branches of RCA. LEFT MAIN CORONARY ARTERY: This is a very short vessel. No significant disease. Immediately bifurcates into LAD and circumflex. LEFT ANTERIOR DESCENDING CORONARY ARTERY: Good caliber vessel extends along the anterior wall. Large caliber in distribution gives off a large diagonal branch, several septal branches, runs all the way to the apex and curves over the apex to supply the inferoapical portion of left ventricle. No significant disease in the LAD system. LEFT POSTERIOR CIRCUMFLEX CORONARY ARTERY: Nondominant vessel gives off a large obtuse marginal that continues distally as a posterolateral branch. Minor irregularities. Calcification noted in the entire circumflex system but no significant obstructive disease. COLLATERALS: Going from the circumflex and also LAD to the distal branches of RCA. LEFT VENTRICULOGRAM: Was not performed. LV was not crossed. FINAL IMPRESSION: This patient has a single-vessel coronary artery disease with total occlusion of RCA. Heavily calcified coronary system. No significant disease in the left main, LAD, or circumflex. Aortic valve was not crossed. RECOMMENDATIONS: This patient probably has moderate aortic stenosis. She will have transesophageal echo today. She has single-vessel disease with total occlusion of RCA, collateralization from the left system. No significant disease in the LAD and circumflex or the left main, but there is significant calcification. RECOMMENDATIONS: I am recommending continued medical therapy and based on the transesophageal echo, we will consider intervention of the aortic valve. We will decrease amiodarone dosage and continue beta yair. She will have transesophageal echo today. Results were discussed with the patient as well as her daughter, Natalie in detail. MMODL / IJN: [id number] /
--- NOTE | 2021-04-01 22:43 | P.TEE ---
Description of Procedure(s): Procedure performed: Transesophageal Echocardiogram with color flow doppler, pulsed wave doppler and continuous wave doppler, moderate conscious sedation Moderate conscious sedation: Moderate conscious sedation was supplied with direct supervision of myself using Versed and Fentanyl. Complications: none Indications: Moderate to severe aortic stenosis History: Patient is a pleasant 85 year old female with history of paroxysmal Afib, HTN, HLD, hypothyroidism and aortic stenosis. She presented with SOB and palpitations and was found to have intermittent episodes of nonsustained VT per report at [facility]. Therefore she was placed on Amio with improvement in symptoms and NSVT. 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 I was therefore asked to perform GLIBERT to further assess degree of aortic stenosis as the TTE showed moderate with max PG 52, mean gradient 31. Dimensionless index noted to be 0.26. EF 55-60% with moderate LVH. PROCEDURE: After the risks, benefits and alternatives of the above mentioned procedure was explained in detail with the patient, informed consent was obtained. Patient was brought to the lab in a fasting state. Patient was given IV Versed and Fentanyl for sedation. The throat was sprayed with Hurricane to anesthetize the throat. A lubricated Omni probe was then introduced into the esophagus and stomach and multiple views were obtained. 2D echo with color flow doppler, pulsed wave doppler and continuous wave doppler was utilized. Agitated saline bubbles were injected to assess for any intra-atrial shunt. The probe was then removed. Patient tolerated the procedure well. Patient was transferred to the post procedure area in stable and satisfactory condition. FINDINGS: 1. The aortic valve is tricuspid and diffusely calcified. Difficult to obtain an accurate ANNIE planimetry with calcium obscuring the orifice and possibly causing overestimation. ANNIE by planimetry of 0.9-1.1cm2 however discrepancy with doppler parameters consistent with moderate aortic stenosis. May consider low dose dobutamine stress echo to evaluate for paradoxical low flow low gradient or CT calcium scoring if clinically indicated. 2. The mitral valve appears be normal with moderate central mitral regurgitation]. 3. Tricuspid valve appears to be normal. 4. The interatrial septum is intact. No evidence of PFO. 5. Left atrial appendage is free of clot. 6. Left ventricular size and function appear to be normal with EF 55%. There is moderate LVH.
[2021-04-02] MEDS: HEPARIN SOD,PORK IN 0.45% NACL 25,000 UNIT in 0.45% NACL 1 250ML.BAG IV SCH (03:23)
[2021-04-02] MEDS: LEVOTHYROXINE 75 MCG TAB PO SCH (06:15)
[2021-04-02] MEDS: APIXABAN 5 MG TAB PO SCH (08:37)
[2021-04-02] MEDS: SERTRALINE 25 MG TAB PO SCH (08:37)
[2021-04-02] MEDS: ATORVASTATIN 20 MG TAB PO SCH (08:37)
[2021-04-02] MEDS ORDERED: AMIODARONE 100 MG TAB PO SCH (09:00)
[2021-04-02] MEDS ORDERED: ASPIRIN 81 MG PO SCH (09:00)
[2021-04-02] MEDS ORDERED: CYANOCOBALAMIN 1,000 MCG/ML 1 ML VIAL IM ONE (10:00)
[2021-04-02 10:25] LABS: Anisocytosis Slight; HCT 31.2 % (34.0-46.0); HGB 10.6 gm/dL (11.4-16.0); MCH 30.8 pg (25.0-35.0); MCV 90.8 fL (80.0-100.0); Mean Platelet Volume 8.7; Platelet Count 198 k/uL (150-450); RBC 3.44 m/uL (3.80-5.40); RDW 16.7 % (11.5-15.5); WBC 8.3 k/uL (3.8-10.6)
--- NOTE | 2021-04-02 10:58 | PN ---
PROGRESS NOTE DATE OF SERVICE: April 02, 2021 Patient is an 85-year-old pleasant white female admitted to the hospital with chest pain and symptomatic anemia. She was recently started on Eliquis for atrial fibrillation. She denies any rectal bleeding or melena. Her hemoglobin was 8.5 g/dL yesterday and today it is 9.4 g/dL. She denies any active GI bleed. She underwent cardiac catheterization yesterday. She did have iron studies done. Iron was reported as 91, TIBC is 312, iron saturation is 29% and ferritin is 103. PHYSICAL EXAMINATION: She appears comfortable. No apparent distress. Vital signs are stable. Blood pressure is 112/86. Pulse rate 47, temperature 97.4. HEENT examination unremarkable. Conjunctivae pink. Sclerae anicteric. Oral cavity no lesions. Neck no JVD or lymph node enlargement. Chest: Clear to auscultation. Heart: Regular rate and rhythm. Abdomen: Soft. Bowel sounds are positive. No organomegaly. Extremities: No pedal edema. Neurologic: Alert and oriented x3. No focal deficits. LABS: WBC 5.3, hemoglobin 9.4, platelets 183. BUN 28, creatinine 1.03. Serum iron 91, TIBC 312, iron saturation 29%. IMPRESSION: 1. Symptomatic anemia with a hemoglobin of 9.4 g/dL. Iron indices are not consistent with iron deficiency anemia. The patient does not have any active GI bleed. 2. Elevated troponin. Cardiology following the patient. 3. Mild elevation of BUN and creatinine. 4. History of hypertension and hypercholesteremia. 5. Atrial fibrillation on Eliquis. RECOMMENDATIONS: Since the patient does not have any evidence of iron deficiency anemia, no need for any endoscopic workup at the present time. She can continue with Eliquis. Monitor CBC. We will sign off at this time. Please call us if needed. Thank you for this consultation. MMODL / IJN: [id number] /
--- NOTE | 2021-04-02 12:47 | XR ---
EXAMINATION TYPE: XR chest 1V portable DATE OF EXAM: 04/02/2021 COMPARISON: NONE HISTORY: Cough, aspiration TECHNIQUE: Single frontal view of the chest is obtained. FINDINGS: There is no focal air space opacity, pleural effusion, or pneumothorax seen. The cardiac silhouette size is within normal limits. The osseous structures are intact. Mild hyperinflation. Ar thropathy of the shoulders with diffuse osteopenia. Atherosclerotic change aorta. Degenerative change of the spine. IMPRESSION: No acute process.
[2021-04-02] MEDS: METOPROLOL SUCCINATE (ER) 50 MG TAB.ER.24H PO SCH (13:10)
[2021-04-02] MEDS: SODIUM CHLORIDE 0.45% 1,000 ML IV SCH (13:10)
--- NOTE | 2021-04-02 15:11 | XR ---
EXAMINATION TYPE: XR Hip Complete LT DATE OF EXAM: 04/02/2021 COMPARISON: NONE HISTORY: Hip pain TECHNIQUE: 2 views FINDINGS: There is some deformity of the greater trochanter of the left femur. There is amorphous wiley cification in the soft tissues adjacent to the greater trochanter. The hip joint space is fairly norm al. Sacroiliac joint is intact. 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
--- NOTE | 2021-04-02 15:57 | P.DS ---
Providers Date of admission: 03/31/21 00:38 Expected date of discharge: 04/02/21 Attending physician: Tahir Lafleur MD Consults: 03/31/21 00:36 Consult Physician Urgent Consulting Provider: Brendan Benson Consult Reason/Comments: afib,VT Do you want consulting provider notified?: Yes 04/01/21 08:22 Consult Physician Routine Consulting Provider: Radha Freitas Consult Reason/Comments: re: anemia Do you want consulting provider notified?: Yes Primary care physician: Susan Luz [facility] Course: Discharge Diagnosis: Ventricular tachycardia NSTEMI, may be elevated due to V tach Paroxysmal atrial fibrillation, currently in normal sinus rhythm Hypertension, controlled Dyslipidemia Moderate Aortic stenosis falls B12 deficiency anemia Left greater Trochanter hip fracture Hypomagnesium, resolved Hypothyroidism Hyperchloremic metabolic acidosis, improving Hospital Course: Patient is an 85-year-old female past medical history of A. fib on Eliquis, hypertension, and dyslipidemia who was transferred to our facility from [facility] secondary to ventricular tachycardia. She was started on IV amiodarone and transferred here for cardiology evaluation. Initial laboratory analysis showed BUN 46, creatinine 1.4, magnesium 1.5, and troponin of 0.03. She was admitted and continued on IV amiodarone. She underwent a GILBERT which demonstrated moderate aortic stenosis. 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 She did have some bradycardia after amiodarone was started. She was noted have an antalgic gait with a limp on the left. 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 She did not have anymore episodes of ventricular tachycardia and she was determined stable for discharge home. She is also known to have anemia and was found have B12 deficiency. She was given her first dose of IM B12 in the hospital. Patient did have a choking episode which she was able to clear on her own. Offered to continue her hospital stay for speech eval, however family declined and will continue to monitor as they will be there 26/03 for the next 2 days. Follow-up: Dr. Luz in 3 days. Patient will likely need weekly B12 injections 4 and then monthly B12, Dr. Guzman in 2 weeks, Dr. Lebron regarding gait disturbance and large chip fracture. She will have home health care. Medications as described below. Patient seen and examined at bedside. Denies any left hip pain, no lightheadedness, no dizziness, no shortness of breath. Vital signs reviewed and stable. General: non toxic, no distress, appears at stated age Derm: Large ecchymosis left hip and thigh, ecchymosis right forehead, warm, dry Head: atraumatic, normocephalic, symmetric Eyes: EOMI, no lid lag, anicteric sclera Mouth: no lip lesion, mucus membranes moist Cardiovascular: S1S2 reg, no murmur, positive posterior tibial pulse bilateral, Lungs: CTA bilateral, no rhonchi, no rales , no accessory muscle use Abdominal: soft, nontender to palpation, no guarding, no appreciable organomegaly Ext: no gross muscle atrophy, no edema, no contractures Neuro: CN II-XI grossly intact, no focal neuro deficits, antalgic gait with forward jerking of the left leg Psych: Alert, oriented, appropriate affect A total of 35 minutes of time were spent preparing this complex discharge summary . Patient Condition at Discharge: Good Plan - Discharge Summary Discharge Rx Participant: Yes New Discharge Prescriptions: New Metoprolol Succinate (ER) [Toprol XL] 25 mg PO DAILY #30 tab Amiodarone [Cordarone] 100 mg PO DAILY #30 tab Continue Magnesium 250 mg PO DAILY Levothyroxine Sodium [Synthroid] 75 mcg PO DAILY Sertraline [Zoloft] 25 mg PO DAILY Rosuvastatin [Crestor] 10 mg PO DAILY Aspirin EC [Ecotrin Low Dose] 81 mg PO DAILY Apixaban [Eliquis] 5 mg PO BID Changed Potassium Chloride ER [K-Dur 20] 20 meq PO DAILY #0 Furosemide [Lasix] 20 mg PO DAILY #0 Discontinued Metoprolol Succinate (ER) [Toprol Xl] 50 mg PO DAILY Discharge Medication List Apixaban [Eliquis] 5 mg PO BID 03/31/21 [History] Aspirin EC [Ecotrin Low Dose] 81 mg PO DAILY 03/31/21 [History] Levothyroxine Sodium [Synthroid] 75 mcg PO DAILY 03/31/21 [History] Magnesium 250 mg PO DAILY 03/31/21 [History] Rosuvastatin [Crestor] 10 mg PO DAILY 03/31/21 [History] Sertraline [Zoloft] 25 mg PO DAILY 03/31/21 [History] Amiodarone [Cordarone] 100 mg PO DAILY #30 tab 04/02/21 [Rx] Furosemide [Lasix] 20 mg PO DAILY #0 04/02/21 [Rx] Metoprolol Succinate (ER) [Toprol XL] 25 mg PO DAILY #30 tab 04/02/21 [Rx] Potassium Chloride ER [K-Dur 20] 20 meq PO DAILY #0 04/02/21 [Rx] Follow up Appointment(s)/Referral(s): Kenia Guzman MD [STAFF PHYSICIAN] - 2 Weeks [facility] [NON-STAFF] - 1 Week (patient known to located within [facility] ) Susan Luz MD [Primary Care Provider] - 3 Days None,Stated [REFERRING] - 1-2 days Wilfredo Lebron DO [Doctor of Osteopathic Medicine] - 1 Week Activity/Diet/Wound Care/Special Instructions: Activity: as tolerated, with walker Diet: heart healthy Special Instructions: Will need B 12 shots of B12 deficiency will be given by Dr. Gutierrez
[2021-04-02 17:04] VITALS: BP 137/63; PULSE 55; RESP 16; TEMP 97.8
== END 2021-04-02 17:35 | disposition home health service (06) | DRG 280 ==
LOC: EC 23:58 → SUPCPDRO 23:58 → 3SCARD 03-31 00:38
PROVIDERS: ADMIT Internal Medicine; ATTEND Internal Medicine
PROC: B2111ZZ Fluoroscopy of Multiple Coronary Arteries using Low Osmolar Contrast (ICD-10-PCS; principal; 2021-03-31)
PROC: B246ZZ4 Ultrasonography of Right and Left Heart, Transesophageal (ICD-10-PCS; 2021-03-31)
DX: I21.4 Non-ST elevation (NSTEMI) myocardial infarction (principal); S72.112A Displaced fracture of greater trochanter of left femur, initial encounter for closed fracture; E87.2 Acidosis; I47.2 Ventricular tachycardia; R00.1 Bradycardia, unspecified; E87.8 Other disorders of electrolyte and fluid balance, not elsewhere classified; S70.02XA Contusion of left hip, initial encounter; I48.0 Paroxysmal atrial fibrillation; I25.10 Atherosclerotic heart disease of native coronary artery without angina pectoris; D51.9 Vitamin B12 deficiency anemia, unspecified; E03.9 Hypothyroidism, unspecified; E53.8 Deficiency of other specified B group vitamins; R29.6 Repeated falls; E78.00 Pure hypercholesterolemia, unspecified; E78.5 Hyperlipidemia, unspecified; E83.42 Hypomagnesemia; F17.210 Nicotine dependence, cigarettes, uncomplicated; I10 Essential (primary) hypertension; I35.0 Nonrheumatic aortic (valve) stenosis; Z79.01 Long term (current) use of anticoagulants; Z79.82 Long term (current) use of aspirin; Z79.890 Hormone replacement therapy; Z79.899 Other long term (current) drug therapy; Z91.81 History of falling; Z90.49 Acquired absence of other specified parts of digestive tract
CPT/HCPCS: 71045; 73502; 80048; 80053; 80061; 82607; 82728; 82747; 83540; 83550; 83735; 84100; 84443; 84484; 85025; 85027; 85610; 85730; 93005; 93308; 93312; 93320; 93325; 93454; 96365; 96366; 96375; 99285

== ENCOUNTER → 2021-04-08 | Outpatient (CLI) | payer MEDICARE ==
[2021-04-08 15:02] LABS: HGB 10.8 g/dL (12.0-15.0); MCH 30.3 pg (27.0-32.0); MCHC 31.8 g/dL (32.0-37.0); MCV 95.5 fL (80.0-97.0); Mean Platelet Volume 10.4 fL (9.5-12.2); Platelet Count 241 X 10*3/uL (140-440); RBC 3.56 X 10*6/uL (4.10-5.20); RDW 17.2 % (11.5-14.5); WBC 6.93 X 10*3/uL (4.50-10.00)
[2021-04-08 19:19] LABS: African American GFR (CKD) 27.8 (60.0-200.0); Anion Gap 14.5 mmol/L (4.00-12.00); Calcium 9.1 mg/dL (8.7-10.3); Carbon Dioxide 19.5 mmol/L (21.6-31.8)
[2021-04-08 19:20] LABS: Magnesium 2.1 mg/dL (1.5-2.4)
== END | disposition home or self-care (01) ==
LOC: LABWHC1 09:29
PROVIDERS: ATTEND Internal Medicine Interventional Cardiology
DX: I10 Essential (primary) hypertension (principal); I25.10 Atherosclerotic heart disease of native coronary artery without angina pectoris
CPT/HCPCS: 36415; 80048; 83735; 85027

== ENCOUNTER 2021-05-21 16:14 | Inpatient (IN) | payer MEDICARE ==
[2021-05-21 17:10] LABS: Anisocytosis Slight; Basophils % (A) 0 %; Eosinophils # (A) 0.1 k/uL (0-0.7); Eosinophils % (A) 1 %; HCT 33.5 % (34.0-46.0); HGB 10.7 gm/dL (11.4-16.0); Hypochromasia Slight; Lymphocytes # (A) 0.8 k/uL (1.0-4.8); Lymphocytes % (A) 7 %; MCH 30.3 pg (25.0-35.0); MCHC 31.8 g/dL (31.0-37.0); MCV 95.2 fL (80.0-100.0); Mean Platelet Volume 8.7; Monocytes # (A) 0.5 k/uL (0-1.0); Monocytes % (A) 5 %; Neutrophils # (A) 9.3 k/uL (1.3-7.7); Neutrophils % (A) 86 %; Platelet Count 142 k/uL (150-450); RBC 3.52 m/uL (3.80-5.40); RDW 16.2 % (11.5-15.5); WBC 10.8 k/uL (3.8-10.6)
[2021-05-21 17:19] LABS: INR 1.1 (<1.2); Partial Thromboplastin Time 25.6 sec (22.0-30.0); Prothrombin Time 11.4 sec (9.0-12.0)
[2021-05-21 17:25] LABS: Albumin 4.3 g/dL (3.5-5.0); Calcium 9.4 mg/dL (8.4-10.2); Magnesium 2.3 mg/dL (1.6-2.3); Potassium 3.9 mmol/L (3.5-5.1); Total Bilirubin 1.4 mg/dL (0.2-1.3); Total Protein 6.8 g/dL (6.3-8.2)
[2021-05-21 18:02] LABS: Appearance,Urine Clear (Clear); Bilirubin,Urine Negative (Negative); Blood,Urine Small (Negative); Color,Urine Yellow; Glucose,Urine (UA) Negative (Negative); Hyaline Casts,Urine 4 /lpf (0-2); Ketones,Urine Trace (Negative); Leukocyte Esterase,Urine Moderate (Negative); Mucus,Urine Rare /hpf; Nitrite,Urine Negative (Negative); PH, Urine 5.5 (5.0-8.0); Protein,Urine 1+ (Negative); RBC,Urine <1 /hpf (0-5); Specific Gravity,Urine 1.018 (1.001-1.035); Squamous Epithelial Cell,Urine 2 /hpf (0-4); Urobilinogen,Urine <2.0 mg/dL (<2.0); WBC,Urine 6 /hpf (0-5)
[2021-05-21] MEDS ORDERED: HEPARIN SODIUM 1,000 UN/ML (10ML VL) IV ONE (18:06)
[2021-05-21] MEDS ORDERED: ASPIRIN 81 MG PO STA (18:07)
--- NOTE | 2021-05-21 18:12 | XR ---
EXAMINATION TYPE: XR Hip LT and AP Pelvis DATE OF EXAM: 05/21/2021 COMPARISON: NONE HISTORY: Pain TECHNIQUE: 3 views FINDINGS: Pelvic ring is intact. Sacroiliac joints are intact. There is deformity of the greater trochanter of the left femur consistent with an old large chip frac ture. Unchanged. Hip joint spaces are fairly normal. IMPRESSION: No acute abnormality of the pelvis and left hip. No change compared to old exam.
--- NOTE | 2021-05-21 18:14 | XR ---
EXAMINATION TYPE: XR shoulder complete RT DATE OF EXAM: 05/21/2021 COMPARISON: NONE HISTORY: Pain TECHNIQUE: 3 views FINDINGS: There is narrowing of the glenohumeral joint space. There is spurring of the AC joint. Ther e is deformity of the right clavicle consistent with an acute nondisplaced fracture. There is moderat e spurring at the inferior glenohumeral joint. IMPRESSION: Osteoarthritis. Acute nondisplaced fracture right clavicle.
--- NOTE | 2021-05-21 18:15 | XR ---
EXAMINATION TYPE: XR chest 2V DATE OF EXAM: 05/21/2021 COMPARISON: NONE HISTORY: Pain TECHNIQUE: 2 views FINDINGS: Heart is borderline enlarged. There is no heart failure. There is some coarsening of inters titial markings. Thoracic aorta is atheromatous. There are chest leads. There is fracture of the mid shaft of the right clavicle with 100% offset. IMPRESSION: Mild pulmonary fibrosis. No heart failure. No pulmonary consolidation. Acute fracture right clavicle with displacement.
--- NOTE | 2021-05-21 18:22 | ED ---
General Adult HPI - General Chief complaint: Fall Stated complaint: pain in pelvis Time Seen by Provider: 05/21/21 16:27 Source: patient, EMS Mode of arrival: EMS Limitations: physical limitation - History of Present Illness Initial comments: Patient is an 85-year-old female presenting to the emergency department via EMS with complaints of hip pain after she fell yesterday. Patient states she lost her balance and fell, she believes she fell forward onto her right shoulder. She is complaining of right shoulder pain. She states she did not hit her head, she has no neck pain. She is also complaining of some mild shortness of breath that she thinks started yesterday. She has no history of COPD, is not on oxygen. Denies any chest pain, no shortness of breath at rest right now. She denies any abdominal pain, no nausea or vomiting. When asked if she is having hip pain she states no. She did tell EMS that she was having right hip pain. She denies any recent fevers or chills, no cough or congestion. She denies any lightheadedness or dizziness. She does live at home by herself, she does receive home health care twice weekly. She states she has been taking her medications as prescribed. She does have history of A. fib and is on a Eliquis. Patient's daughter is here with her now and is helping provide history. She does have some form of some very mild dementia. Daughter states that she has fallen quite a bit in the last couple months, but does not like to admit it. She denies any dysuria. She was complaining of some mild diarrhea over the past couple days. No recent antibiotics. No history C. diff. Patient has no furt her complaints at this time. Upon arrival to the ER, she was at 85% on room air, rest of vitals within normal limits. - Related Data Home Medications Medication Instructions Recorded Confirmed Apixaban [Eliquis] 5 mg PO BID 03/31/21 05/21/21 Levothyroxine Sodium [Synthroid] 75 mcg PO DAILY 03/31/21 05/21/21 Rosuvastatin [Crestor] 10 mg PO DAILY 03/31/21 05/21/21 Sertraline [Zoloft] 25 mg PO DAILY 03/31/21 05/21/21 Magnesium Oxide [Mag-Ox] 400 mg PO DAILY 05/21/21 05/21/21 Previous Rx's Medication Instructions Recorded Amiodarone [Cordarone] 100 mg PO DAILY #30 tab 04/02/21 Furosemide [Lasix] 20 mg PO DAILY #0 04/02/21 Metoprolol Succinate (ER) [Toprol 25 mg PO DAILY #30 tab 04/02/21 XL] Allergies Allergy/AdvReac Type Severity Reaction Status Date / Time No Known Allergies Allergy Verified 05/21/21 18:26 Review of Systems ROS Statement: Those systems with pertinent positive or pertinent negative responses have been documented in the HPI. ROS Other: All systems not noted in ROS Statement are negative. Past Medical History Past Medical History: Atrial Fibrillation, Hyperlipidemia, Hypertension, Thyroid Disorder History of Any Multi-Drug Resistant Organisms: None Reported Additional Past Surgical History / Comment(s): gallbladder removal - states 60yrs ago. Past Anesthesia/Blood Transfusion Reactions: No Reported Reaction Past Psychological History: No Psychological Hx Reported Smoking Status: Light tobacco smoker Past Alcohol Use History: None Reported Past Drug Use History: None Reported - Past Family History Mother Family Medical History: Cancer General Exam - General Exam Comments Initial Comments: GENERAL: Patient is well-developed and well-nourished. Patient is nontoxic and in no acute distress. HEAD: Atraumatic, normocephalic. There are no hematomas, no signs of basal skull fracture. EYES: Pupils equal round and reactive to light, extraocular movements intact, sclera anicteric, conjunctiva are normal. Eyelids were unremarkable. ENT: TMs normal, nares patent, oropharynx clear without exudates. Moist mucous membranes. NECK: Normal range of motion, supple without lymphadenopathy or JVD. She has no m idline tenderness. LUNGS: Unlabored respirations. Breath sounds clear to auscultation bilaterally and equal. No wheezes rales or rhonchi. HEART: Regular rate and rhythm with murmur. ABDOMEN: Soft, nontender, normoactive bowel sounds. No guarding, no rebound. No masses appreciated. : Deferred MUSCULOSKELETAL: Patient has full range of motion of her bilateral knees, bilateral hips. She does have some pain with palpation of the anterior right shoulder and clavicle area. No obvious deformity. She is neurovascular intact of bilateral lower and upper extremities. No clubbing or cyanosis. NEUROLOGICAL: Patient is alert and oriented x 3, hx of mild dementia. Motor and sensory are also intact. Cranial nerves II through XII grossly intact. Symmetrical smile. Normal speech. PSYCH: Normal mood, normal affect. SKIN: Warm, Dry, normal turgor, no rashes or lesions noted. Limitations: physical limitation Course Vital Signs 05/21/21 05/21/21 05/21/21 16:19 16:21 19:01 Temperature 97.8 F Pulse Rate 71 69 Respiratory 18 18 Rate Blood Pressure 137/80 146/75 O2 Sat by Pulse 85 L 96 96 Oximetry EKG Findings - EKG Comments: EKG Findings:: Normal sinus rhythm, left ventricular hypertrophy, prolonged QT, she does have some inverted T waves in leads aVL, V2. This is similar to her previous EKG on 04/01/2021. Ventricular rate 71, GA interval 162, QTC 456. Procedures - Orthopedic Splinting/Casting Injury #1 Side: right Upper Extremity Injury Location: clavicle Upper Extremity Immobilizer: sling/shoulder immobilizer Medical Decision Making - Medical Decision Making Patient is an 85-year-old female history of Chelsi rivas, on a Eliquis, presenting via EMS after a fall yesterday. She was complaining of some hip pain. Upon examining the patient, she was complaining of right shoulder pain and states she is short of breath. She was 85% on room air, rest of vitals were normal. We did put her on 2 L, she is statting normal 96%. He still has some mild dementia, her daughter is here helping provide history. Her daughter does have power of ip technology transactions attorney. There was thought that she may have been lightheaded or dizzy when she fell yesterday. Patient's labs returned white count of 10.8, hemoglobin stable at 10.7 and, creatinine is elevated at 1.89 with BUN of 52. Her troponin came back very elevated at 3.390. Her EKG today shows sinus rhythm, no signs of acute ST segment elevation. This was comparable to her old EKG in March. CK is elevated at 947, mild transaminitis, and BNP is 26,000. Patient is denying any chest pain today or yesterday. Covid is negative. Urine shows no evidence of UTI, C. diff is negative. Chest x-ray shows no acute process other than acute right clavicle fracture, hip and pelvic x-rays are within normal limits. Patient was placed in a sling. Patient was given aspirin, started on heparin. I discussed case with Dr. Nava who agrees to admit with cardio consult. Patient and patient's daughter are in agreement with this. Case discussed with Dr. Peter. - Lab Data Result diagrams: 05/21/21 16:58 05/21/21 16:58 Lab Results 05/21/21 05/21/21 05/21/21 Range/Units 16:58 16:58 16:58 WBC 10.8 H (3.8-10.6) k/uL RBC 3.52 L (3.80-5.40) m/uL Hgb 10.7 L (11.4-16.0) gm/dL Hct 33.5 L (34.0-46.0) % MCV 95.2 (80.0-100.0) fL MCH 30.3 (25.0-35.0) pg MCHC 31.8 (31.0-37.0) g/dL RDW 16.2 H (11.5-15.5) % Plt Count 142 L (150-450) k/uL MPV 8.7 Neutrophils % 86 % Lymphocytes % 7 % Monocytes % 5 % Eosinophils % 1 % Basophils % 0 % Neutrophils # 9.3 H (1.3-7.7) k/uL Lymphocytes # 0.8 L (1.0-4.8) k/uL Monocytes # 0.5 (0-1.0) k/uL Eosinophils # 0.1 (0-0.7) k/uL Basophils # 0.0 (0-0.2) k/uL Hypochromasia Slight Anisocytosis Slight PT 11.4 (9.0-12.0) sec INR 1.1 (<1.2) APTT 25.6 (22.0-30.0) sec Sodium 141 (137-145) mmol/L Potassium 3.9 (3.5-5.1) mmol/L Chloride 110 H (98-107) mmol/L Carbon Dioxide 15 L (22-30) mmol/L Anion Gap 16 mmol/L BUN 52 H (7-17) mg/dL Creatinine 1.89 H (0.52-1.04) mg/dL Est GFR (CKD-EPI)AfAm 28 (>60 ml/min/1.73 sqM) Est GFR (CKD-EPI)NonAf 24 (>60 ml/min/1.73 sqM) Glucose 101 H (74-99) mg/dL Plasma Lactic Acid Andrew (0.7-2.0) mmol/L Calcium 9.4 (8.4-10.2) mg/dL Magnesium 2.3 (1.6-2.3) mg/dL Total Bilirubin 1.4 H (0.2-1.3) mg/dL AST 138 H (14-36) U/L ALT 77 H (4-34) U/L Alkaline Phosphatase 141 H (38-126) U/L Creatine Kinase 947 H (30-135) U/L Troponin I (0.000-0.034) ng/mL NT-Pro-B Natriuret Pep pg/mL Total Protein 6.8 (6.3-8.2) g/dL Albumin 4.3 (3.5-5.0) g/dL Urine Color Urine Appearance (Clear) Urine pH (5.0-8.0) Ur Specific Coyote (1.001-1.035) Urine Protein (Negative) Urine Glucose (UA) (Negative) Urine Ketones (Negative) Urine Blood (Negative) Urine Nitrite (Negative) Urine Bilirubin (Negative) Urine Urobilinogen (<2.0) mg/dL Ur Leukocyte Esterase (Negative) Urine RBC (0-5) /hpf Urine WBC (0-5) /hpf Ur Squamous Epith Cells (0-4) /hpf Hyaline Casts (0-2) /lpf Urine Mucus (None) /hpf C. difficile (EIA) Intrp (Negative) Coronavirus (PCR) (Not Detectd) 05/21/21 05/21/21 05/21/21 Range/Units 16:58 16:58 16:58 WBC (3.8-10.6) k/uL RBC (3.80-5.40) m/uL Hgb (11.4-16.0) gm/dL Hct (34.0-46.0) % MCV (80.0-100.0) fL MCH (25.0-35.0) pg MCHC (31.0-37.0) g/dL RDW (11.5-15.5) % Plt Count (150-450) k/uL MPV Neutrophils % % Lymphocytes % % Monocytes % % Eosinophils % % Basophils % % Neutrophils # (1.3-7.7) k/uL Lymphocytes # (1.0-4.8) k/uL Monocytes # (0-1.0) k/uL Eosinophils # (0-0.7) k/uL Basophils # (0-0.2) k/uL Hypochromasia Anisocytosis PT (9.0-12.0) sec INR (<1.2) APTT (22.0-30.0) sec Sodium (137-145) mmol/L Potassium (3.5-5.1) mmol/L Chloride (98-107) mmol/L Carbon Dioxide (22-30) mmol/L Anion Gap mmol/L BUN (7-17) mg/dL Creatinine (0.52-1.04) mg/dL Est GFR (CKD-EPI)AfAm (>60 ml/min/1.73 sqM) Est GFR (CKD-EPI)NonAf (>60 ml/min/1.73 sqM) Glucose (74-99) mg/dL Plasma Lactic Acid Andrew 1.4 (0.7-2.0) mmol/L Calcium (8.4-10.2) mg/dL Magnesium (1.6-2.3) mg/dL Total Bilirubin (0.2-1.3) mg/dL AST (14-36) U/L ALT (4-34) U/L Alkaline Phosphatase (38-126) U/L Creatine Kinase (30-135) U/L Troponin I 3.390 H* (0.000-0.034) ng/mL NT-Pro-B Natriuret Pep 57751 pg/mL Total Protein (6.3-8.2) g/dL Albumin (3.5-5.0) g/dL Urine Color Urine Appearance (Clear) Urine pH (5.0-8.0) Ur Specific Coyote (1.001-1.035) Urine Protein (Negative) Urine Glucose (UA) (Negative) Urine Ketones (Negative) Urine Blood (Negative) Urine Nitrite (Negative) Urine Bilirubin (Negative) Urine Urobilinogen (<2.0) mg/dL Ur Leukocyte Esterase (Negative) Urine RBC (0-5) /hpf Urine WBC (0-5) /hpf Ur Squamous Epith Cells (0-4) /hpf Hyaline Casts (0-2) /lpf Urine Mucus (None) /hpf C. difficile (EIA) Intrp (Negative) Coronavirus (PCR) (Not Detectd) 05/21/21 05/21/21 05/21/21 Range/Units 17:18 17:24 18:00 WBC (3.8-10.6) k/uL RBC (3.80-5.40) m/uL Hgb (11.4-16.0) gm/dL Hct (34.0-46.0) % MCV (80.0-100.0) fL MCH (25.0-35.0) pg MCHC (31.0-37.0) g/dL RDW (11.5-15.5) % Plt Count (150-450) k/uL MPV Neutrophils % % Lymphocytes % % Monocytes % % Eosinophils % % Basophils % % Neutrophils # (1.3-7.7) k/uL Lymphocytes # (1.0-4.8) k/uL Monocytes # (0-1.0) k/uL Eosinophils # (0-0.7) k/uL Basophils # (0-0.2) k/uL Hypochromasia Anisocytosis PT (9.0-12.0) sec INR (<1.2) APTT (22.0-30.0) sec Sodium (137-145) mmol/L Potassium (3.5-5.1) mmol/L Chloride (98-107) mmol/L Carbon Dioxide (22-30) mmol/L Anion Gap mmol/L BUN (7-17) mg/dL Creatinine (0.52-1.04) mg/dL Est GFR (CKD-EPI)AfAm (>60 ml/min/1.73 sqM) Est GFR (CKD-EPI)NonAf (>60 ml/min/1.73 sqM) Glucose (74-99) mg/dL Plasma Lactic Acid Andrew (0.7-2.0) mmol/L Calcium (8.4-10.2) mg/dL Magnesium (1.6-2.3) mg/dL Total Bilirubin (0.2-1.3) mg/dL AST (14-36) U/L ALT (4-34) U/L Alkaline Phosphatase (38-126) U/L Creatine Kinase (30-135) U/L Troponin I (0.000-0.034) ng/mL NT-Pro-B Natriuret Pep pg/mL Total Protein (6.3-8.2) g/dL Albumin (3.5-5.0) g/dL Urine Color Yellow Urine Appearance Clear (Clear) Urine pH 5.5 (5.0-8.0) Ur Specific Coyote 1.018 (1.001-1.035) Urine Protein 1+ H (Negative) Urine Glucose (UA) Negative (Negative) Urine Ketones Trace H (Negative) Urine Blood Small H (Negative) Urine Nitrite Negative (Negative) Urine Bilirubin Negative (Negative) Urine Urobilinogen <2.0 (<2.0) mg/dL Ur Leukocyte Esterase Moderate H (Negative) Urine RBC <1 (0-5) /hpf Urine WBC 6 H (0-5) /hpf Ur Squamous Epith Cells 2 (0-4) /hpf Hyaline Casts 4 H (0-2) /lpf Urine Mucus Rare H (None) /hpf C. difficile (EIA) Intrp Negative (Negative) Coronavirus (PCR) Not Detected (Not Detectd) Critical Care Time Critical Care Time: Yes Total Critical Care Time: 35 (Patient presented on room air 85%, we did start her on 2 L. Patient's troponin came back at 3.3, she started low-dose heparin. Patient admitted.) Disposition Clinical Impression: Fall, Right clavicle fracture, Hypoxia, Elevated troponin, Transaminitis, Heart failure Disposition: ADMITTED IP TO THIS HOSP Condition: Fair Referrals: Susan Luz MD [Primary Care Provider] - 1-2 days Decision Date: 05/21/21 Decision Time: 18:44
[2021-05-21] MEDS: HEPARIN SOD,PORK IN 0.45% NACL 25,000 UNIT in 0.45% NACL 1 250ML.BAG IV SCH (19:09)
[2021-05-22] MEDS ORDERED: SODIUM CHLORIDE 0.9% 1,000 ML IV SCH (04:45)
--- NOTE | 2021-05-22 05:08 | P.HPIM ---
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 fib on Eliquis, hypothyroid, aortic stenosis moderate Patient comes in today after sustaining a fall yesterday complaining of hip pain patient came in by EMS she lives alone daughter indicated that patient has been falling a lot but she wouldn't admitted. Patient currently denies any chest pain or trouble breathing but she is complaining of left shoulder pain. She denies loss of consciousness or hitting her head. Patient is on Eliquis for paroxysmal A. fib. Patient has mild form of dementia and history was obtained by reviewing medical record Patient claims that she lost her balance and fell denies any dizziness or lightheadedness denies any palpitations or irregular heartbeat. Patient denies any GI bleeding Reviewing medical records showed that she was recently hospitalized around March 2021 at that time she had nonsustained V. tach, and elevated troponins left heart cath was performed showed total occlusion of RCA with good collaterals single-vessel disease coronary artery disease, left anterior descending and circumflex and left main showed no significant disease however it did show some significant calcification Patient also had transesophageal echocardiogram showed left ventricular ejection fraction 5560 percent with moderate aortic valve stenosis and severe calcification She was also found to have altered left great trochanteric hip fracture with nonunion Extensive workup done in the ED showed significantly elevated troponin however trending down, elevated proBNP. Chronic anemia stable. Acute kidney injury. She has found to have acute right clavicular fracture with displacement Patient was also having reports of diarrhea, C. diff was negative Patient was also found slightly hypoxic upon arrival on room air and that was corrected with supplemental oxygen 2 L nasal cannula Review of Systems ROS unobtainable: due to mental status Past Medical History Past Medical History: Atrial Fibrillation, Hyperlipidemia, Hypertension, Thyroid Disorder History of Any Multi-Drug Resistant Organisms: None Reported Additional Past Surgical History / Comment(s): gallbladder removal - states 60yrs ago. Past Anesthesia/Blood Transfusion Reactions: No Reported Reaction Past Psychological History: No Psychological Hx Reported Smoking Status: Light tobacco smoker Past Alcohol Use History: None Reported Past Drug Use History: None Reported - Past Family History Mother Family Medical History: Cancer Medications and Allergies Home Medications Medication Instructions Recorded Confirmed Type Apixaban [Eliquis] 5 mg PO BID 03/31/21 05/21/21 History Levothyroxine Sodium [Synthroid] 75 mcg PO DAILY 03/31/21 05/21/21 History Rosuvastatin [Crestor] 10 mg PO DAILY 03/31/21 05/21/21 History Sertraline [Zoloft] 25 mg PO DAILY 03/31/21 05/21/21 History Amiodarone [Cordarone] 100 mg PO DAILY #30 tab 04/02/21 05/21/21 Rx Furosemide [Lasix] 20 mg PO DAILY #0 04/02/21 05/21/21 Rx Metoprolol Succinate (ER) [Toprol 25 mg PO DAILY #30 tab 04/02/21 05/21/21 Rx XL] Magnesium Oxide [Mag-Ox] 400 mg PO DAILY 05/21/21 05/21/21 History Allergies Allergy/AdvReac Type Severity Reaction Status Date / Time No Known Allergies Allergy Verified 05/21/21 18:26 Physical Exam Vitals: Vital Signs Temp Pulse Resp BP Pulse Ox 05/21/21 20:18 68 20 161/94 97 05/21/21 19:01 69 18 146/75 96 05/21/21 16:21 96 05/21/21 16:19 97.8 F 71 18 137/80 85 L Intake and Output 05/21/21 05/21/21 05/21/21 06:59 14:59 22:59 Other: Weight 63.503 kg Constitutional: No acute distress, confused not fully cooperative with exam Eyes: Anicteric sclerae, moist conjunctiva, Pupils equal round reactive to light ENMT: NC/AT Neck: Supple, no masses, or JVD No carotid bruits No thyromegaly Lungs: Some inspiratory rales at lung basis, no wheezing or crackles Clear to percussion Normal respiratory effort, no accessory muscle use Cardiovascular: Heart regular in rate and rhythm, loud murmurs, no gallops, or rubs No peripheral edema Abdominal: Soft Nontender, no guarding, rebound or rigidity Abdomen moving with respiration Normoactive bowel sounds No hepatomegaly, No splenomegaly No palpable mass No abdominal wall hernia noted Skin: Large area of bruising and ecchymosis over the right shoulder over the right clavicular area no open wounds or cuts Extremities: No digital cyanosis No clubbing Pedal pulses intact and symmetrical Radial pulses intact and symmetrical No calf tenderness Capillary refill is immediate the right upper extremity Psychiatric: Patient was trying to sleep she seems to be slightly confused irritated because of the pain Neuro unable to properly examine however patient moving all 4 extremities spontaneously resisting wearing shoulder sling Lymphatics: no palpable cervical or supraclavicular , or inguinal lymph nodes Results CBC & Chem 7: 05/21/21 16:58 05/21/21 16:58 Labs: Abnormal Lab Results - Last 24 Hours (Table) 05/21/21 05/21/21 05/21/21 Range/Units 16:58 16:58 16:58 WBC 10.8 H (3.8-10.6) k/uL RBC 3.52 L (3.80-5.40) m/uL Hgb 10.7 L (11.4-16.0) gm/dL Hct 33.5 L (34.0-46.0) % RDW 16.2 H (11.5-15.5) % Plt Count 142 L (150-450) k/uL Neutrophils # 9.3 H (1.3-7.7) k/uL Lymphocytes # 0.8 L (1.0-4.8) k/uL Chloride 110 H (98-107) mmol/L Carbon Dioxide 15 L (22-30) mmol/L BUN 52 H (7-17) mg/dL Creatinine 1.89 H (0.52-1.04) mg/dL Glucose 101 H (74-99) mg/dL Total Bilirubin 1.4 H (0.2-1.3) mg/dL AST 138 H (14-36) U/L ALT 77 H (4-34) U/L Alkaline Phosphatase 141 H (38-126) U/L Creatine Kinase 947 H (30-135) U/L Troponin I 3.390 H* (0.000-0.034) ng/mL Urine Protein (Negative) Urine Ketones (Negative) Urine Blood (Negative) Ur Leukocyte Esterase (Negative) Urine WBC (0-5) /hpf Hyaline Casts (0-2) /lpf Urine Mucus (None) /hpf 05/21/21 05/21/21 Range/Units 17:18 20:47 WBC (3.8-10.6) k/uL RBC (3.80-5.40) m/uL Hgb (11.4-16.0) gm/dL Hct (34.0-46.0) % RDW (11.5-15.5) % Plt Count (150-450) k/uL Neutrophils # (1.3-7.7) k/uL Lymphocytes # (1.0-4.8) k/uL Chloride (98-107) mmol/L Carbon Dioxide (22-30) mmol/L BUN (7-17) mg/dL Creatinine (0.52-1.04) mg/dL Glucose (74-99) mg/dL Total Bilirubin (0.2-1.3) mg/dL AST (14-36) U/L ALT (4-34) U/L Alkaline Phosphatase (38-126) U/L Creatine Kinase (30-135) U/L Troponin I 3.340 H* (0.000-0.034) ng/mL Urine Protein 1+ H (Negative) Urine Ketones Trace H (Negative) Urine Blood Small H (Negative) Ur Leukocyte Esterase Moderate H (Negative) Urine WBC 6 H (0-5) /hpf Hyaline Casts 4 H (0-2) /lpf Urine Mucus Rare H (None) /hpf Assessment and Plan Assessment: NSTEMI Trend troponins Cardiac monitoring Cardiology consult Aspirin statin Patient started on heparin drip per ACS EKG showed no acute ST changes Pain control Heparin drip for ACS Patient had recent left heart cath March 2021 showed single-vessel coronary artery disease with total occlusion of RCA with good collaterals, no significant coronary artery disease in LAD, circumflex, and left main. However with significant calcification at that time revealed recommended maximal medical therapy Transesophageal echocardiogram March 2021 showed left ventricle ejection fraction 5560 percent, with moderate aortic valve stenosis with significant calcification. Acute right clavicular fracture with displacement arm sling Pain control Consider orthopedic eval Acute kidney injury Avoid nephrotoxic meds IV fluid hydration with normal saline Monitor renal function Monitor urine output Follow-up renal function Chronic anemia no reported GI bleeding Monitor hemoglobin Monitor for any evidence of GI bleeding Mild transaminitis Monitor liver enzymes Chronic conditions A. fib on Eliquis at home Moderate aortic valve stenosis Hypothyroid resume levothyroxine Anticipated length of stay more than 2 midnights Anticipated discharge pending PT valve patient with frequent falls at home consider placement or discharge with family
[2021-05-22] MEDS: LEVOTHYROXINE 75 MCG TAB PO SCH (05:36)
[2021-05-22 06:28] LABS: Anisocytosis Slight; Basophils % (A) 0 %; Eosinophils % (A) 0 %; HCT 33.6 % (34.0-46.0); HGB 10.7 gm/dL (11.4-16.0); Hypochromasia Slight; Lymphocytes # (A) 0.6 k/uL (1.0-4.8); Lymphocytes % (A) 6 %; MCH 30.7 pg (25.0-35.0); MCHC 31.8 g/dL (31.0-37.0); MCV 96.8 fL (80.0-100.0); Mean Platelet Volume 8.7; Monocytes # (A) 0.5 k/uL (0-1.0); Monocytes % (A) 5 %; Neutrophils # (A) 8.7 k/uL (1.3-7.7); Neutrophils % (A) 88 %; Platelet Count 119 k/uL (150-450); RBC 3.48 m/uL (3.80-5.40); RDW 16.2 % (11.5-15.5); WBC 9.9 k/uL (3.8-10.6)
[2021-05-22 07:11] LABS: INR 1.1 (<1.2); Partial Thromboplastin Time 39.1 sec (22.0-30.0); Prothrombin Time 11.4 sec (9.0-12.0)
[2021-05-22] MEDS ORDERED: FUROSEMIDE 20 MG TAB PO SCH (09:00)
[2021-05-22] MEDS: HEPARIN SODIUM 1,000 UN/ML (10ML VL) IV PRN ×2 (09:11→18:48)
[2021-05-22] MEDS: SERTRALINE 25 MG TAB PO SCH (09:12)
[2021-05-22] MEDS: ATORVASTATIN 20 MG TAB PO SCH (09:12)
[2021-05-22] MEDS: METOPROLOL SUCCINATE (ER) 25 MG TAB.ER.24H PO SCH (09:12)
[2021-05-22] MEDS: ASPIRIN 325 MG TAB PO SCH (09:12)
[2021-05-22] MEDS: MAGNESIUM OXIDE 400 MG TAB PO SCH (09:12)
[2021-05-22] MEDS: AMIODARONE 100 MG TAB PO SCH (09:14)
--- NOTE | 2021-05-22 11:08 | P.PN ---
<Edmar Royal - Last Filed: 05/22/21 10:43> Subjective Progress Note Date: 05/22/21 Hospital course: Patient is a very pleasant 85-year-old Female with a past medical histor of hy pertension, hyperlipidemia, atrial fibrillation on anticoagulation with Eliquis, and hypothyroidism. She presented to the emergency department on 05/21/21 with a chief complaint of fall resulting in left hip pain. Patient has had history of recurrent falls and was recently hospitalized on 04/01/21 for a left hip fracture. Patient reports a mechanical fall and denies hitting her head or having any loss of consciousness. Patient states pain to left hip and left shoulder. In the emergency department patient was found to have an acute right clavicular fracture with displacement.Left hip x-ray negative for acute findings. She was also noted to have elevated troponin of 3.390, 3.340, and 3.200. An EKG revealed normal sinus rhythm at 71 bpm T-wave inversion in V2 unchanged from previous EKG 04/01/21 with the exception of rate. ProBNP also elevated at 26,800. Previous transesophageal echocardiogram completed 04/01/21 revealed a normal EF of 55%. Patient was given aspirin, atorvastatin, and metoprolol and started on heparin infusion per ACS protocol. Patient admitted under our services with consultation to cardiology. Physical exam: Patient was seen and fully evaluated at the bedside this morning. She reports slight pain to her right shoulder otherwise denies having any other complaints at this time including Headache, lightheadedness, dizziness, chest pain, Dictations, shortness of breath, cough, congestion, abdominal pain, nausea, vomiting, having any changes or difficulties with her urine or bowel function with the exception of "occasional diarrhea". She denies experiencing any swelling in her legs, or experiencing any numbness/tingling/weakness in her extremities. She does report that she has progressively been experiencing Dyspnea with exertion over the past month In which she denies Ever experiencing in the past.r. Patient's proBNP was elevated at 26,800 Troponin also elevated. Previous EF was 55% on 04/01/21. Vital signs reviewed and stable. General: Nontoxic, no distress and appears stated age. Derm: Skin warm and dry, normal coloration for ethnicity. Head: Atraumatic, normocephalic and symmetric. Eyes: EOMs intact, no lid lag, and anicteric sclera Mouth: no lip lesions, mucus membranes moist Cardiovascular: regular rate and rhythm with normal S1S2, MURMUR present, positive posterior tibial pulses bilaterally, and cap refill < 2 seconds. Lungs: Respirations even, regular, and unlabored on room air. Lungs CTA bilaterally, no rhonchi, no rales, no wheezing, and no accessory muscle usage. Abdominal: soft, nontender to palpation, no guarding, no appreciable organomegaly Ext: Movement and sensation intact. No gross muscle atrophy, no edema, no contractures. Positive deformity and bruising to right Clavicle. Right arm in sling. Neuro: Speech clear, face symmetrical and CN II-XII grossly intact with no noted focal neuro deficits Psych: Alert and oriented to person, place, time, and situation. Appropriate and pleasant affect. Assessment and Plan of Care: NSTEMI Heart Failure -Telemetry Monitoring. -Elevated troponin of 3.390, 3.340, and 3.200. -An EKG revealed normal sinus rhythm at 71 bpm T-wave inversion in V2 unchanged from previous EKG 04/01/21 with the exception of rate. -ProBNP also elevated at 26,800. -Continue heparin infusion per ACS protocol. -Continue daily aspirin, atorvastatin, metoprolol. -Repeat echocardiogram to Determine if patient is in systolic versus diastolic heart failure. -Cardiology consulted. Fall resulting in acute right clavicular fracture with displacement -Sling in place -cryptologic support specialist consulted -Symptomatic care and pain management, ice packs as needed -Fall precautions -Physical therapy Hypertension -Monitor vital signs and continue daily medication regimen. Hyperlipidemia Continue daily medication regimen with amiodarone and metoprolol. Atrial fibrillation on anticoagulation with Eliquis Continue amiodarone. Currently holding oral anticoagulant, Eliquis as pt admitted as a NSTEMI and placed on Heparin infusion pending possible cardiac catheterization. Hypothyroidism -Continue daily medication regimen. CODE STATUS: Full code DVT prophylaxis: Heparin Discussed with: Patient and RN Anticipated discharge date: Clinical course to determine Anticipated discharge place: SNF vs home in which patient reports living alone, but states her daughter can come stay with her until she is healed. A total of 45 minutes was spent on the care of this complex patient more than 50% of the time was spent in counseling and care coordination. Objective - Vital Signs Vital signs: Vital Signs Temp 97.9 F 09/19/21 04:00 Pulse 65 05/22/21 04:00 Resp 20 05/22/21 04:00 BP 161/79 05/22/21 04:00 Pulse Ox 96 05/22/21 07:39 Intake & Output 05/21/21 05/22/21 05/22/21 18:59 06:59 18:59 Intake Total 43.434 Balance 43.434 Weight 63.503 kg 54 kg Intake: Intake, IV Titration 43.434 Amount Heparin Sod,Pork in 0.45% 43.434 NaCl 25,000 unit In 0.45 % NaCl 1 250ml.bag @ 12 UNITS/KG/HR 7.62 mls/hr IV .Q24H [facility] Rx#: [id number] Other: Voiding Method Diaper - Labs CBC & Chem 7: 05/22/21 05:45 05/21/21 16:58 Labs: Abnormal Lab Results - Last 24 Hours (Table) 05/21/21 05/21/21 05/21/21 Range/Units 16:58 16:58 16:58 WBC 10.8 H (3.8-10.6) k/uL RBC 3.52 L (3.80-5.40) m/uL Hgb 10.7 L (11.4-16.0) gm/dL Hct 33.5 L (34.0-46.0) % RDW 16.2 H (11.5-15.5) % Plt Count 142 L (150-450) k/uL Neutrophils # 9.3 H (1.3-7.7) k/uL Lymphocytes # 0.8 L (1.0-4.8) k/uL APTT (22.0-30.0) sec Chloride 110 H (98-107) mmol/L Carbon Dioxide 15 L (22-30) mmol/L BUN 52 H (7-17) mg/dL Creatinine 1.89 H (0.52-1.04) mg/dL Glucose 101 H (74-99) mg/dL Total Bilirubin 1.4 H (0.2-1.3) mg/dL AST 138 H (14-36) U/L ALT 77 H (4-34) U/L Alkaline Phosphatase 141 H (38-126) U/L Creatine Kinase 947 H (30-135) U/L Troponin I 3.390 H* (0.000-0.034) ng/mL Urine Protein (Negative) Urine Ketones (Negative) Urine Blood (Negative) Ur Leukocyte Esterase (Negative) Urine WBC (0-5) /hpf Hyaline Casts (0-2) /lpf Urine Mucus (None) /hpf 05/21/21 05/21/21 05/21/21 Range/Units 17:18 20:47 23:25 WBC (3.8-10.6) k/uL RBC (3.80-5.40) m/uL Hgb (11.4-16.0) gm/dL Hct (34.0-46.0) % RDW (11.5-15.5) % Plt Count (150-450) k/uL Neutrophils # (1.3-7.7) k/uL Lymphocytes # (1.0-4.8) k/uL APTT (22.0-30.0) sec Chloride (98-107) mmol/L Carbon Dioxide (22-30) mmol/L BUN (7-17) mg/dL Creatinine (0.52-1.04) mg/dL Glucose (74-99) mg/dL Total Bilirubin (0.2-1.3) mg/dL AST (14-36) U/L ALT (4-34) U/L Alkaline Phosphatase (38-126) U/L Creatine Kinase (30-135) U/L Troponin I 3.340 H* 3.200 H* (0.000-0.034) ng/mL Urine Protein 1+ H (Negative) Urine Ketones Trace H (Negative) Urine Blood Small H (Negative) Ur Leukocyte Esterase Moderate H (Negative) Urine WBC 6 H (0-5) /hpf Hyaline Casts 4 H (0-2) /lpf Urine Mucus Rare H (None) /hpf 05/21/21 05/22/21 05/22/21 Range/Units 23:25 05:45 05:45 WBC (3.8-10.6) k/uL RBC 3.48 L (3.80-5.40) m/uL Hgb 10.7 L (11.4-16.0) gm/dL Hct 33.6 L (34.0-46.0) % RDW 16.2 H (11.5-15.5) % Plt Count 119 L (150-450) k/uL Neutrophils # 8.7 H (1.3-7.7) k/uL Lymphocytes # 0.6 L (1.0-4.8) k/uL APTT 51.4 H 39.1 H (22.0-30.0) sec Chloride (98-107) mmol/L Carbon Dioxide (22-30) mmol/L BUN (7-17) mg/dL Creatinine (0.52-1.04) mg/dL Glucose (74-99) mg/dL Total Bilirubin (0.2-1.3) mg/dL AST (14-36) U/L ALT (4-34) U/L Alkaline Phosphatase (38-126) U/L Creatine Kinase (30-135) U/L Troponin I (0.000-0.034) ng/mL Urine Protein (Negative) Urine Ketones (Negative) Urine Blood (Negative) Ur Leukocyte Esterase (Negative) Urine WBC (0-5) /hpf Hyaline Casts (0-2) /lpf Urine Mucus (None) /hpf <Anali Pruett - Last Filed: 05/22/21 16:35> Objective - Vital Signs Vital signs: Vital Signs Temp 98.4 F 05/22/21 15:37 Pulse 65 05/22/21 15:37 Resp 20 05/22/21 15:37 BP 146/74 05/22/21 15:37 Pulse Ox 96 05/22/21 15:37 Intake & Output 05/21/21 05/22/21 05/22/21 18:59 06:59 18:59 Intake Total 43.434 64.643 Balance 43.434 64.643 Weight 63.503 kg 54 kg Intake: Intake, IV Titration 43.434 64.643 Amount Heparin Sod,Pork in 0.45% 43.434 64.643 NaCl 25,000 unit In 0.45 % NaCl 1 250ml.bag @ 12 UNITS/KG/HR 7.62 mls/hr IV .Q24H [facility] Rx#: [id number] Oral 0 Other: Voiding Method Diaper # Voids 2 # Bowel Movements 1 - Labs CBC & Chem 7: 05/22/21 05:45 05/21/21 16:58 Labs: Abnormal Lab Results - Last 24 Hours (Table) 05/21/21 05/21/21 05/21/21 Range/Units 16:58 16:58 16:58 WBC 10.8 H (3.8-10.6) k/uL RBC 3.52 L (3.80-5.40) m/uL Hgb 10.7 L (11.4-16.0) gm/dL Hct 33.5 L (34.0-46.0) % RDW 16.2 H (11.5-15.5) % Plt Count 142 L (150-450) k/uL Neutrophils # 9.3 H (1.3-7.7) k/uL Lymphocytes # 0.8 L (1.0-4.8) k/uL APTT (22.0-30.0) sec Chloride 110 H (98-107) mmol/L Carbon Dioxide 15 L (22-30) mmol/L BUN 52 H (7-17) mg/dL Creatinine 1.89 H (0.52-1.04) mg/dL Glucose 101 H (74-99) mg/dL Total Bilirubin 1.4 H (0.2-1.3) mg/dL AST 138 H (14-36) U/L ALT 77 H (4-34) U/L Alkaline Phosphatase 141 H (38-126) U/L Creatine Kinase 947 H (30-135) U/L Troponin I 3.390 H* (0.000-0.034) ng/mL Urine Protein (Negative) Urine Ketones (Negative) Urine Blood (Negative) Ur Leukocyte Esterase (Negative) Urine WBC (0-5) /hpf Hyaline Casts (0-2) /lpf Urine Mucus (None) /hpf 05/21/21 05/21/21 05/21/21 Range/Units 17:18 20:47 23:25 WBC (3.8-10.6) k/uL RBC (3.80-5.40) m/uL Hgb (11.4-16.0) gm/dL Hct (34.0-46.0) % RDW (11.5-15.5) % Plt Count (150-450) k/uL Neutrophils # (1.3-7.7) k/uL Lymphocytes # (1.0-4.8) k/uL APTT (22.0-30.0) sec Chloride (98-107) mmol/L Carbon Dioxide (22-30) mmol/L BUN (7-17) mg/dL Creatinine (0.52-1.04) mg/dL Glucose (74-99) mg/dL Total Bilirubin (0.2-1.3) mg/dL AST (14-36) U/L ALT (4-34) U/L Alkaline Phosphatase (38-126) U/L Creatine Kinase (30-135) U/L Troponin I 3.340 H* 3.200 H* (0.000-0.034) ng/mL Urine Protein 1+ H (Negative) Urine Ketones Trace H (Negative) Urine Blood Small H (Negative) Ur Leukocyte Esterase Moderate H (Negative) Urine WBC 6 H (0-5) /hpf Hyaline Casts 4 H (0-2) /lpf Urine Mucus Rare H (None) /hpf 05/21/21 05/22/21 05/22/21 Range/Units 23:25 05:45 05:45 WBC (3.8-10.6) k/uL RBC 3.48 L (3.80-5.40) m/uL Hgb 10.7 L (11.4-16.0) gm/dL Hct 33.6 L (34.0-46.0) % RDW 16.2 H (11.5-15.5) % Plt Count 119 L (150-450) k/uL Neutrophils # 8.7 H (1.3-7.7) k/uL Lymphocytes # 0.6 L (1.0-4.8) k/uL APTT 51.4 H 39.1 H (22.0-30.0) sec Chloride (98-107) mmol/L Carbon Dioxide (22-30) mmol/L BUN (7-17) mg/dL Creatinine (0.52-1.04) mg/dL Glucose (74-99) mg/dL Total Bilirubin (0.2-1.3) mg/dL AST (14-36) U/L ALT (4-34) U/L Alkaline Phosphatase (38-126) U/L Creatine Kinase (30-135) U/L Troponin I (0.000-0.034) ng/mL Urine Protein (Negative) Urine Ketones (Negative) Urine Blood (Negative) Ur Leukocyte Esterase (Negative) Urine WBC (0-5) /hpf Hyaline Casts (0-2) /lpf Urine Mucus (None) /hpf Assessment and Plan Assessment: Edmar Royal NP rendered care for this patient independently, reviewed the findings and plan as documented in the note above. I did not physically speak with or examine the patient on this date. Patient with severe aortic stenosis on prior TTE done in March 2021. Case was discussed with cardiology on 05/21 who felt that her severe aortic stenosis could be complicating the situation. I do recommend repeat echo to evaluate left ventricular wall motion and aortic stenosis. Continue with heparin drip.
--- NOTE | 2021-05-22 11:13 | P.HPOR ---
History of Present Illness H&P Date: 05/22/21 Chief Complaint: Fall from standing 85-year-old female presented to the hospital with multiple medical comorbidities and including cardiac history after what seemingly is a syncopal episode and fall from standing onto her right hand side. The patient states pain in her right shoulder. She has a history of a greater trochanteric fracture that is chronic however she has no hip pain at this time. She denies any numbness or tingling she denies blunt head trauma or loss of consciousness with the fall. She denies pain anywhere else in her body at this time. Review of Systems 14 points review of systems completed and as stated in HPI, all other systems reviewed are negative. Past Medical History Past Medical History: Atrial Fibrillation, Hyperlipidemia, Hypertension, Thyroid Disorder History of Any Multi-Drug Resistant Organisms: None Reported Additional Past Surgical History / Comment(s): gallbladder removal - states 60yrs ago. Past Anesthesia/Blood Transfusion Reactions: No Reported Reaction Past Psychological History: No Psychological Hx Reported Smoking Status: Light tobacco smoker Past Alcohol Use History: None Reported Past Drug Use History: None Reported - Past Family History Mother Family Medical History: Cancer Medications and Allergies Home Medications Medication Instructions Recorded Confirmed Type Apixaban [Eliquis] 5 mg PO BID 03/31/21 05/21/21 History Levothyroxine Sodium [Synthroid] 75 mcg PO DAILY 03/31/21 05/21/21 History Rosuvastatin [Crestor] 10 mg PO DAILY 03/31/21 05/21/21 History Sertraline [Zoloft] 25 mg PO DAILY 03/31/21 05/21/21 History Amiodarone [Cordarone] 100 mg PO DAILY #30 tab 04/02/21 05/21/21 Rx Furosemide [Lasix] 20 mg PO DAILY #0 04/02/21 05/21/21 Rx Metoprolol Succinate (ER) [Toprol 25 mg PO DAILY #30 tab 04/02/21 05/21/21 Rx XL] Magnesium Oxide [Mag-Ox] 400 mg PO DAILY 05/21/21 05/21/21 History Allergies Allergy/AdvReac Type Severity Reaction Status Date / Time No Known Allergies Allergy Verified 05/21/21 18:26 Physical Examination Osteopathic Statement: *. No significant issues noted on an osteopathic structural exam other than those noted in the History and Physical/Consult. Patient is alert and oriented 3 appears well-nourished well-hydrated is in no acute distress. They do not appear septic. There is TTP over the right clavicle midshaft and palpable bony crepitance in this area Lower extremities with 4 out of 5 strength in all major muscle groups secondary to her current medical state Upper extremities show 4/5 strength in all major muscle groups. Secondary to her current medical state as well as her right clavicle fracture There is FROM that is painless of the b/l UE and LE in all major joints. Limited range of motion right arm secondary clavicle fracture They are intact to light touch sensation in L2 to S1 nerve distribution. DTR 2/4 all upper and lower extremities Patient has palpable dorsalis pedis was posterior tibial pulses. Palpable Rad Ulnar pulses b/l Compartments are soft and compressible. Patient shows a negative Homans Cranial nerves II through XII are grossly intact. Special Testing: Negative logroll bilateral hips negative pain with palpation of the ankles knees hips thighs shoulders elbows wrists bilaterally Results Right shoulder films as well as pelvis and left hip films are reviewed. Right shoulder films demonstrate a midshaft clavicle fracture that is displaced but not shortened. There is before meals joint arthritis and so a glenohumeral arthritis and severe there is no proximal humerus fracture is visualized. There is no dislocation glenohumeral joint appears secure and stable. AP pelviscongruent level pelvis no fracture dislocation she has a chronic left greater trochanteric chip fracture with no acute changes. - Labs Labs: Abnormal Lab Results - Last 24 Hours (Table) 05/21/21 05/21/21 05/21/21 Range/Units 16:58 16:58 16:58 WBC 10.8 H (3.8-10.6) k/uL RBC 3.52 L (3.80-5.40) m/uL Hgb 10.7 L (11.4-16.0) gm/dL Hct 33.5 L (34.0-46.0) % RDW 16.2 H (11.5-15.5) % Plt Count 142 L (150-450) k/uL Neutrophils # 9.3 H (1.3-7.7) k/uL Lymphocytes # 0.8 L (1.0-4.8) k/uL APTT (22.0-30.0) sec Chloride 110 H (98-107) mmol/L Carbon Dioxide 15 L (22-30) mmol/L BUN 52 H (7-17) mg/dL Creatinine 1.89 H (0.52-1.04) mg/dL Glucose 101 H (74-99) mg/dL Total Bilirubin 1.4 H (0.2-1.3) mg/dL AST 138 H (14-36) U/L ALT 77 H (4-34) U/L Alkaline Phosphatase 141 H (38-126) U/L Creatine Kinase 947 H (30-135) U/L Troponin I 3.390 H* (0.000-0.034) ng/mL Urine Protein (Negative) Urine Ketones (Negative) Urine Blood (Negative) Ur Leukocyte Esterase (Negative) Urine WBC (0-5) /hpf Hyaline Casts (0-2) /lpf Urine Mucus (None) /hpf 05/21/21 05/21/21 05/21/21 Range/Units 17:18 20:47 23:25 WBC (3.8-10.6) k/uL RBC (3.80-5.40) m/uL Hgb (11.4-16.0) gm/dL Hct (34.0-46.0) % RDW (11.5-15.5) % Plt Count (150-450) k/uL Neutrophils # (1.3-7.7) k/uL Lymphocytes # (1.0-4.8) k/uL APTT (22.0-30.0) sec Chloride (98-107) mmol/L Carbon Dioxide (22-30) mmol/L BUN (7-17) mg/dL Creatinine (0.52-1.04) mg/dL Glucose (74-99) mg/dL Total Bilirubin (0.2-1.3) mg/dL AST (14-36) U/L ALT (4-34) U/L Alkaline Phosphatase (38-126) U/L Creatine Kinase (30-135) U/L Troponin I 3.340 H* 3.200 H* (0.000-0.034) ng/mL Urine Protein 1+ H (Negative) Urine Ketones Trace H (Negative) Urine Blood Small H (Negative) Ur Leukocyte Esterase Moderate H (Negative) Urine WBC 6 H (0-5) /hpf Hyaline Casts 4 H (0-2) /lpf Urine Mucus Rare H (None) /hpf 05/21/21 05/22/21 05/22/21 Range/Units 23:25 05:45 05:45 WBC (3.8-10.6) k/uL RBC 3.48 L (3.80-5.40) m/uL Hgb 10.7 L (11.4-16.0) gm/dL Hct 33.6 L (34.0-46.0) % RDW 16.2 H (11.5-15.5) % Plt Count 119 L (150-450) k/uL Neutrophils # 8.7 H (1.3-7.7) k/uL Lymphocytes # 0.6 L (1.0-4.8) k/uL APTT 51.4 H 39.1 H (22.0-30.0) sec Chloride (98-107) mmol/L Carbon Dioxide (22-30) mmol/L BUN (7-17) mg/dL Creatinine (0.52-1.04) mg/dL Glucose (74-99) mg/dL Total Bilirubin (0.2-1.3) mg/dL AST (14-36) U/L ALT (4-34) U/L Alkaline Phosphatase (38-126) U/L Creatine Kinase (30-135) U/L Troponin I (0.000-0.034) ng/mL Urine Protein (Negative) Urine Ketones (Negative) Urine Blood (Negative) Ur Leukocyte Esterase (Negative) Urine WBC (0-5) /hpf Hyaline Casts (0-2) /lpf Urine Mucus (None) /hpf H & H 05/21/21 05/22/21 Range/Units 16:58 05:45 Hgb 10.7 L 10.7 L (11.4-16.0) gm/dL Hct 33.5 L 33.6 L (34.0-46.0) % Coagulation 05/21/21 05/22/21 Range/Units 16:58 05:45 INR 1.1 1.1 (<1.2) Result Diagrams: 05/22/21 05:45 05/21/21 16:58 Assessment and Plan Assessment: 85-year-old female status post fall from standing Right midshaft clavicle fracture, displaced Left chronic greater trochanter chip fracture Complex medical patient Plan: Nonweightbearing right upper extremity with sling Ice and rest her pain and swelling control Pain medications as needed Medical management Follow-up in the office in 1-2 weeks for reevaluation Thank you very much this consultation I discussed the patient's physical exam findings as well as her imaging with her in the hospital room today. She is comfortable with the plan of care at this time. If there are any changes in her condition feel free to contact the orthopedic service
[2021-05-22 11:45] LABS: Chol/HDL Ratio 2.44; LDL Cholesterol,Calculated 58.6 mg/dL (0.0-131.0); VLDL Calculation 19.4 mg/dL (5.00-40.00)
--- NOTE | 2021-05-22 14:48 | P.CRDCN ---
History of Present Illness History of present illness: HISTORY OF PRESENTING ILLNESS This is a pleasant 85-year-old female past medical history significant for paroxysmal atrial fibrillation on long-term anticoagulation with Eliquis, h ypertension, dyslipidemia, aortic stenosis CAD with [employer] of RCA as well as mild disease of the left and hypothyroidism. She follows in the office with Dr. Guzman. Patient initially came to the hospital at the end of March with symptoms of shortness breath and dyspnea on exertion and was found to have VT at [place] and therefore heart catheterization was recommended which showed a [employer] of the RCA and only mild irregularities of the left system. She also has moderate to severe aortic stenosis with GILBERT performed at that time which showed some discrepancies between plan admit her. Valve area and velocities. She was discharged home and treated medically however over the last week she has been n oticing episodes of dyspnea on exertion. She denies any chest pain or pressure. She apparently also had a mechanical fall where she just "fell off balance" and denies any actual lightheadedness. Unfortunately she broke her right clavicle. She denies any current chest pain or pressure and feels comfortable sitting in bed however feels that usually if she gets up and does something she will feel short of breath. EKG shows normal sinus rhythm, LVH with nonspecific T-wave inversions aVL, V1 through V2. Blood work shows white blood cell count 10.8, hemoglobin 10.7, platelets 142, bicarb 15, creatinine 1.89, AST 138, ALP 77, total bilirubin 1.4, troponin 3.3, 3.3, 3.2. ProBNP is noted to be elevated at 26,000. Her creatinine was normal in March, they have been contrast-induced nephropathy from heart catheterization. REVIEW OF SYSTEMS At the time of my exam: CONSTITUTIONAL: Denies fever or chills. CARDIOVASCULAR: Denies chest pain, +shortness of breath, no orthopnea, PND or palpitations. RESPIRATORY: Denies cough. GASTROINTESTINAL: Denies abdominal pain, diarrhea, constipation, nausea or vomiting. MUSCULOSKELETAL: Denies myalgias. NEUROLOGIC: Denies numbness, tingling or weakness. ENDOCRINE: Denies fatigue, weight change, polydipsia or polyurina. GENITOURINARY: Denies burning, hematuria or urgency with micturation. HEMATOLOGIC: Denies history of anemia or bleeding. PHYSICAL EXAMINATION Vital signs reviewed. CONSTITUTIONAL: No apparent distress, frail HEENT: Head is normocephalic. Pupils are equal, round. Sclerae anicteric. Mucous membranes of the mouth are moist. No JVD. No carotid bruit. CHEST EXAMINATION: Lungs are clear to auscultation. No chest wall tenderness is noted on palpation or with deep breathing. HEART EXAMINATION: Regular rate and rhythm. S1, S2 heard. +4/6 systolic murmur, no gallops or rub. ABDOMEN: Soft, nontender. Positive bowel sounds. EXTREMITIES: 2+ peripheral pulses, no lower extremity edema and no calf tenderness. NEUROLOGIC EXAMINATION: Patient is awake, alert and oriented x3. ASSESSMENT 1. Non-STEMI 2. Moderate to severe aortic stenosis 3. Dyspnea on exertion 4. CAD with [employer] of RCA from heart catheterization 03/2021 5. Acute kidney injury, may be related to contrast-induced nephropathy 6. Anemia 7. Metabolic acidosis 8. Mildly elevated AST, ALT 9. Acute on chronic diastolic heart failure PLAN Patient with mainly dyspnea on exertion however has new scaly elevated troponins, somewhat more than last admission however last admission catheterization films reviewed with relatively normal left disease and RCA [employer] with some [id number] collaterals. There is a possibility this could be from her aortic stenosis however did not appear critical on GILBERT and prior echocardiogram. Continue heparin drip for now. Check repeat transthoracic echo to evaluate left ventricular motion as well as uric stenosis. Monitor kidney function. Risk of contrast-induced nephropathy elevated given CK D and worsening kidney function compared to prior heart catheterization. Further recommendations follow. Past Medical History Past Medical History: Atrial Fibrillation, Hyperlipidemia, Hypertension, Thyroid Disorder History of Any Multi-Drug Resistant Organisms: None Reported Additional Past Surgical History / Comment(s): gallbladder removal - states 60yrs ago. Past Anesthesia/Blood Transfusion Reactions: No Reported Reaction Past Psychological History: No Psychological Hx Reported Smoking Status: Light tobacco smoker Past Alcohol Use History: None Reported Past Drug Use History: None Reported - Past Family History Mother Family Medical History: Cancer Medications and Allergies Home Medications Medication Instructions Recorded Confirmed Type Apixaban [Eliquis] 5 mg PO BID 03/31/21 05/21/21 History Levothyroxine Sodium [Synthroid] 75 mcg PO DAILY 03/31/21 05/21/21 History Rosuvastatin [Crestor] 10 mg PO DAILY 03/31/21 05/21/21 History Sertraline [Zoloft] 25 mg PO DAILY 03/31/21 05/21/21 History Amiodarone [Cordarone] 100 mg PO DAILY #30 tab 04/02/21 05/21/21 Rx Furosemide [Lasix] 20 mg PO DAILY #0 04/02/21 05/21/21 Rx Metoprolol Succinate (ER) [Toprol 25 mg PO DAILY #30 tab 04/02/21 05/21/21 Rx XL] Magnesium Oxide [Mag-Ox] 400 mg PO DAILY 05/21/21 05/21/21 History Allergies Allergy/AdvReac Type Severity Reaction Status Date / Time No Known Allergies Allergy Verified 05/21/21 18:26 Physical Exam Vitals: Vital Signs Temp Pulse Pulse Resp BP BP Pulse Ox 05/22/21 11:19 98.5 F 62 20 140/64 93 L 05/22/21 08:00 98 F 65 16 158/81 96 05/22/21 07:39 96 05/22/21 04:00 97.9 F 65 20 161/79 97 05/22/21 02:00 97.0 F L 70 20 149/69 95 05/21/21 20:18 68 20 161/94 97 05/21/21 19:01 69 18 146/75 96 05/21/21 16:21 96 05/21/21 16:19 97.8 F 71 18 137/80 85 L Intake and Output 05/21/21 05/22/21 05/22/21 22:59 06:59 14:59 Intake Total 43.434 64.643 Balance 43.434 64.643 Intake: Intake, IV Titration 43.434 64.643 Amount Heparin Sod,Pork in 0.45% 43.434 64.643 NaCl 25,000 unit In 0.45 % NaCl 1 250ml.bag @ 12 UNITS/KG/HR 7.62 mls/hr IV .Q24H [facility] Rx#: [id number] Oral 0 Other: Voiding Method Diaper # Voids 2 Weight 54 kg 54 kg Results 05/22/21 05:45 05/21/21 16:58 Cardiac Enzymes 05/21/21 05/21/21 05/21/21 Range/Units 16:58 16:58 20:47 AST 138 H (14-36) U/L Troponin I 3.390 H* 3.340 H* (0.000-0.034) ng/mL 05/21/21 Range/Units 23:25 AST (14-36) U/L Troponin I 3.200 H* (0.000-0.034) ng/mL Coagulation 05/21/21 05/21/21 05/22/21 Range/Units 16:58 23:25 05:45 PT 11.4 11.4 (9.0-12.0) sec APTT 25.6 51.4 H 39.1 H (22.0-30.0) sec Lipids 05/22/21 Range/Units 05:45 Triglycerides 97.0 (0.0-149.0) mg/dL Cholesterol 132 (0-200) mg/dL HDL Cholesterol 54.0 (40.0-60.0) mg/dL Cholesterol/HDL Ratio 2.44 CBC 05/21/21 05/22/21 Range/Units 16:58 05:45 WBC 10.8 H 9.9 (3.8-10.6) k/uL RBC 3.52 L 3.48 L (3.80-5.40) m/uL Hgb 10.7 L 10.7 L (11.4-16.0) gm/dL Hct 33.5 L 33.6 L (34.0-46.0) % Plt Count 142 L 119 L (150-450) k/uL Comprehensive Metabolic Panel 05/21/21 Range/Units 16:58 Sodium 141 (137-145) mmol/L Potassium 3.9 (3.5-5.1) mmol/L Chloride 110 H (98-107) mmol/L Carbon Dioxide 15 L (22-30) mmol/L BUN 52 H (7-17) mg/dL Creatinine 1.89 H (0.52-1.04) mg/dL Glucose 101 H (74-99) mg/dL Calcium 9.4 (8.4-10.2) mg/dL AST 138 H (14-36) U/L ALT 77 H (4-34) U/L Alkaline Phosphatase 141 H (38-126) U/L Total Protein 6.8 (6.3-8.2) g/dL Albumin 4.3 (3.5-5.0) g/dL Current Medications Generic Name Dose Route Start Last Admin Trade Name Freq PRN Reason Stop Dose Admin Acetaminophen 650 mg 05/22/21 11:15 Acetaminophen Tab 325 Mg Tab PO Q6HR PRN Mild Pain or Fever > 100.5 Amiodarone HCl 100 mg 05/22/21 09:00 05/22/21 09:14 Amiodarone 100 Mg Tab PO 100 mg DAILY MK Administration Aspirin 325 mg 05/22/21 09:00 05/22/21 09:12 Aspirin 325 Mg Tab PO 325 mg DAILY MK Administration Atorvastatin Calcium 20 mg 05/22/21 09:00 05/22/21 09:12 Atorvastatin 20 Mg Tab PO 20 mg DAILY MK Administration Heparin Sodium (Porcine) 0 unit 05/21/21 18:06 05/22/21 09:11 Heparin Sodium 1,000 Un/Ml (10ml Vl) IV 1,350 unit PER PROTOCOL PRN Administration Low PTT Protocol Heparin Sodium/Sodium Chloride 250 mls @ 7.62 mls/hr 05/21/21 18:15 05/22/21 09:20 25,000 unit/ Sodium Chloride IV 14 units/kg/hr .Q24H MK 8.89 mls/hr Titration Protocol 12 UNITS/KG/HR Sodium Chloride 1,000 mls @ 75 mls/hr 05/22/21 04:45 05/22/21 05:36 Saline 0.9% IV 75 mls/hr .[id number] MK Administration Levothyroxine Sodium 75 mcg 05/22/21 06:30 05/22/21 05:36 Levothyroxine 75 Mcg Tab PO 75 mcg DAILY@0630 MK Administration Magnesium Oxide 400 mg 05/22/21 09:00 05/22/21 09:12 Magnesium Oxide 400 Mg Tab PO 400 mg DAILY MK Administration Metoprolol Succinate 25 mg 05/22/21 09:00 05/22/21 09:12 Metoprolol Succinate (Er) 25 Mg Tab.Er.24h PO 25 mg DAILY MK Administration Sertraline HCl 25 mg 05/22/21 09:00 05/22/21 09:12 Sertraline 25 Mg Tab PO 25 mg DAILY MK Administration Intake and Output 05/21/21 05/22/21 05/22/21 22:59 06:59 14:59 Intake Total 43.434 64.643 Balance 43.434 64.643 Intake: Intake, IV Titration 43.434 64.643 Amount Heparin Sod,Pork in 0.45% 43.434 64.643 NaCl 25,000 unit In 0.45 % NaCl 1 250ml.bag @ 12 UNITS/KG/HR 7.62 mls/hr IV .Q24H [facility] Rx#: [id number] Oral 0 Other: Voiding Method Diaper # Voids 2 Weight 54 kg 54 kg 05/22/21 05:45 05/21/21 16:58
[2021-05-22] MEDS: ACETAMINOPHEN TAB 325 MG TAB PO PRN (16:00)
[2021-05-22 17:54] LABS: Albumin 3.3 g/dL (3.5-5.0); Calcium 8.6 mg/dL (8.4-10.2); Potassium 3.3 mmol/L (3.5-5.1); Total Bilirubin 1.1 mg/dL (0.2-1.3); Total Protein 5.8 g/dL (6.3-8.2)
[2021-05-22] MEDS: HEPARIN SOD,PORK IN 0.45% NACL 25,000 UNIT in 0.45% NACL 1 250ML.BAG IV SCH (20:14)
[2021-05-22] MEDS ORDERED: POTASSIUM CHLORIDE ER 20 MEQ TAB.ER PO STA (20:18)
[2021-05-23] MEDS: LEVOTHYROXINE 75 MCG TAB PO SCH (06:03)
[2021-05-23 08:00] LABS: Anisocytosis Slight; HCT 32.2 % (34.0-46.0); HGB 10.4 gm/dL (11.4-16.0); Hypochromasia Moderate; MCH 30.9 pg (25.0-35.0); MCHC 32.2 g/dL (31.0-37.0); MCV 96.1 fL (80.0-100.0); Mean Platelet Volume 8.3; Platelet Count 121 k/uL (150-450); RBC 3.35 m/uL (3.80-5.40); RDW 16.1 % (11.5-15.5); WBC 7.7 k/uL (3.8-10.6)
[2021-05-23 08:17] LABS: Albumin 3.3 g/dL (3.5-5.0); Calcium 8.9 mg/dL (8.4-10.2); Magnesium 2.1 mg/dL (1.6-2.3); Potassium 3.4 mmol/L (3.5-5.1); Total Bilirubin 1.1 mg/dL (0.2-1.3); Total Protein 5.9 g/dL (6.3-8.2)
[2021-05-23] MEDS ORDERED: POTASSIUM CHLORIDE ER 20 MEQ TAB.ER PO STA (08:37)
--- NOTE | 2021-05-23 08:46 | P.PN ---
<Edmar Royal - Last Filed: 05/23/21 08:39> Subjective Progress Note Date: 05/23/21 Hospital course: Patient is a very pleasant 85-year-old Female with a past medical histor of hy pertension, hyperlipidemia, atrial fibrillation on anticoagulation with Eliquis, and hypothyroidism. She presented to the emergency department on 05/21/21 with a chief complaint of fall resulting in left hip pain. Patient has had history of recurrent falls and was recently hospitalized on 04/01/21 for a left hip fracture. Patient reports a mechanical fall and denies hitting her head or having any loss of consciousness. Patient states pain to left hip and left shoulder. In the emergency department patient was found to have an acute right clavicular fracture with displacement.Left hip x-ray negative for acute findings. She was also noted to have elevated troponin of 3.390, 3.340, and 3.200. An EKG revealed normal sinus rhythm at 71 bpm T-wave inversion in V2 unchanged from previous EKG 04/01/21 with the exception of rate. ProBNP also elevated at 26,800. Previous transesophageal echocardiogram completed 04/01/21 revealed a normal EF of 55%. Patient was given aspirin, atorvastatin, and metoprolol and started on heparin infusion per ACS protocol. Patient admitted under our services with consultation to cardiology. Physical exam: Patient was seen and fully evaluated at the bedside this morning. Sling Eanes in place to right arm and patient reports right shoulder pain has improved. Patient states feeling well this morning and denies having any headache, lightheadedness, dizziness, chest pain, palpitations, shortness of breath, cou gh, abdominal pain, nausea, vomiting, or any other complaints at this time. Morning labs reviewed and stable with the exception of mild hypokalemia with potassium of 3.4, Replaced. Patient remains on heparin infusion pending echocardiogram and further recommendations by cardiology. Vital signs reviewed and stable. General: Nontoxic, no distress and appears stated age. Derm: Skin warm and dry, normal coloration for ethnicity. Head: Atraumatic, normocephalic and symmetric. Eyes: EOMs intact, no lid lag, and anicteric sclera Mouth: no lip lesions, mucus membranes moist Cardiovascular: regular rate and rhythm with normal S1S2, MURMUR present, pos itive posterior tibial pulses bilaterally, and cap refill < 2 seconds. Lungs: Respirations even, regular, and unlabored on room air. Lungs CTA bilaterally, no rhonchi, no rales, no wheezing, and no accessory muscle usage. Abdominal: soft, nontender to palpation, no guarding, no appreciable organo megaly Ext: Movement and sensation intact. No gross muscle atrophy, no edema, no contractures. Positive deformity and bruising to right Clavicle. Right arm in sling. Neuro: Speech clear, face symmetrical and CN II-XII grossly intact with no noted focal neuro deficits Psych: Alert and oriented to person, place, time, and situation. Appropriate and pleasant affect. Assessment and Plan of Care: NSTEMI Heart Failure -Telemetry Monitoring. -Elevated troponin of 3.390, 3.340, and 3.200. -An EKG revealed normal sinus rhythm at 71 bpm T-wave inversion in V2 unchanged from previous EKG 04/01/21 with the exception of rate. -ProBNP also elevated at 26,800. -Continue heparin infusion per ACS protocol. -Continue daily aspirin, atorvastatin, metoprolol. -Repeat echocardiogram to Determine if patient is in systolic versus diastolic heart failure. -Cardiology consulted. Fall resulting in acute right clavicular fracture with displacement -Sling in place -multimedia specialist consulted, Recommending continuation of sling Supportive treatment and for patient to follow-up outpatient in his office in 2 weeks -Symptomatic care and pain management, ice packs as needed -Fall precautions -Physical therapy Severe aortic stenosis on prior TTE done in March 2021 -Case was discussed with cardiology on 05/21 who felt that her severe aortic stenosis could be complicating the situation. -Recommend repeat echo to evaluate left ventricular wall motion and aortic stenosis. -Continue with heparin drip until further cleared by cardiology. Hypokalemia, replaced -We will continue to monitor with repeat a.m. labs. Chronic normocytic normochromic anemia, stable with hemoglobin of 10.4 Hypertension -Monitor vital signs and continue daily medication regimen. Hyperlipidemia Continue daily medication regimen with amiodarone and metoprolol. Atrial fibrillation on anticoagulation with Eliquis Continue amiodarone. Currently holding oral anticoagulant, Eliquis as pt admitted as a NSTEMI and placed on Heparin infusion pending possible cardiac catheterization. Hypothyroidism -Continue daily medication regimen. CODE STATUS: Full code DVT prophylaxis: Heparin Discussed with: Patient and RN Anticipated discharge date: Clinical course to determine Anticipated discharge place: SNF vs home in which patient reports living alone, but states her daughter can come stay with her until she is healed. A total of 45 minutes was spent on the care of this complex patient more than 50% of the time was spent in counseling and care coordination. Objective - Vital Signs Vital signs: Vital Signs Temp 98.2 F 05/23/21 04:00 Pulse 56 L 05/23/21 04:00 Resp 18 05/23/21 04:00 BP 136/70 05/23/21 04:00 Pulse Ox 97 05/23/21 04:00 Intake & Output 05/22/21 05/23/21 05/23/21 18:59 06:59 18:59 Intake Total 148.802 314.874 Balance 148.802 314.874 Weight 54.5 kg Intake: Intake, IV Titration 148.802 94.874 Amount Heparin Sod,Pork in 0.45% 148.802 44.874 NaCl 25,000 unit In 0.45 % NaCl 1 250ml.bag @ 12 UNITS/KG/HR 7.62 mls/hr IV .Q24H [facility] Rx#: [id number] Sodium Chloride 0.9% 1, 50 000 ml @ 75 mls/hr IV . [id number] [facility] Rx#:[id number] Oral 0 220 Other: Voiding Method Diaper # Voids 1 1 # Bowel Movements 1 1 - Labs CBC & Chem 7: 05/23/21 07:44 05/23/21 07:44 Labs: Abnormal Lab Results - Last 24 Hours (Table) 05/22/21 05/22/21 05/22/21 Range/Units 17:19 17:19 22:11 RBC (3.80-5.40) m/uL Hgb (11.4-16.0) gm/dL Hct (34.0-46.0) % RDW (11.5-15.5) % Plt Count (150-450) k/uL APTT 41.6 H 66.2 H (22.0-30.0) sec Potassium 3.3 L (3.5-5.1) mmol/L Chloride 114 H (98-107) mmol/L Carbon Dioxide 18 L (22-30) mmol/L BUN 43 H (7-17) mg/dL Creatinine 1.13 H (0.52-1.04) mg/dL Glucose (74-99) mg/dL AST 63 H (14-36) U/L ALT 52 H (4-34) U/L Total Protein 5.8 L (6.3-8.2) g/dL Albumin 3.3 L (3.5-5.0) g/dL 05/23/21 05/23/21 Range/Units 07:44 07:44 RBC 3.35 L (3.80-5.40) m/uL Hgb 10.4 L (11.4-16.0) gm/dL Hct 32.2 L (34.0-46.0) % RDW 16.1 H (11.5-15.5) % Plt Count 121 L (150-450) k/uL APTT (22.0-30.0) sec Potassium 3.4 L (3.5-5.1) mmol/L Chloride 115 H (98-107) mmol/L Carbon Dioxide 15 L (22-30) mmol/L BUN 37 H (7-17) mg/dL Creatinine (0.52-1.04) mg/dL Glucose 105 H (74-99) mg/dL AST 49 H (14-36) U/L ALT 49 H (4-34) U/L Total Protein 5.9 L (6.3-8.2) g/dL Albumin 3.3 L (3.5-5.0) g/dL <Anali Pruett - Last Filed: 05/23/21 16:09> Objective - Vital Signs Vital signs: Vital Signs Temp 98.0 F 05/23/21 08:00 Pulse 114 H 05/23/21 08:00 Resp 18 05/23/21 08:00 BP 112/68 05/23/21 08:00 Pulse Ox 97 05/23/21 08:00 Intake & Output 05/22/21 05/23/21 05/23/21 18:59 06:59 18:59 Intake Total 148.802 314.874 365.468 Balance 148.802 314.874 365.468 Weight 54.5 kg Intake: Intake, IV Titration 148.802 94.874 125.468 Amount Heparin Sod,Pork in 0.45% 148.802 44.874 125.468 NaCl 25,000 unit In 0.45 % NaCl 1 250ml.bag @ 12 UNITS/KG/HR 7.62 mls/hr IV .Q24H [facility] Rx#: [id number] Sodium Chloride 0.9% 1, 50 000 ml @ 75 mls/hr IV . [id number] [facility] Rx#:[id number] Oral 0 220 240 Other: Voiding Method Diaper # Voids 1 1 1 # Bowel Movements 1 1 1 - Labs CBC & Chem 7: 05/23/21 07:44 05/23/21 07:44 Labs: Abnormal Lab Results - Last 24 Hours (Table) 05/22/21 05/22/21 05/22/21 Range/Units 17:19 17:19 22:11 RBC (3.80-5.40) m/uL Hgb (11.4-16.0) gm/dL Hct (34.0-46.0) % RDW (11.5-15.5) % Plt Count (150-450) k/uL APTT 41.6 H 66.2 H (22.0-30.0) sec Potassium 3.3 L (3.5-5.1) mmol/L Chloride 114 H (98-107) mmol/L Carbon Dioxide 18 L (22-30) mmol/L BUN 43 H (7-17) mg/dL Creatinine 1.13 H (0.52-1.04) mg/dL Glucose (74-99) mg/dL AST 63 H (14-36) U/L ALT 52 H (4-34) U/L Total Protein 5.8 L (6.3-8.2) g/dL Albumin 3.3 L (3.5-5.0) g/dL 05/23/21 05/23/21 Range/Units 07:44 07:44 RBC 3.35 L (3.80-5.40) m/uL Hgb 10.4 L (11.4-16.0) gm/dL Hct 32.2 L (34.0-46.0) % RDW 16.1 H (11.5-15.5) % Plt Count 121 L (150-450) k/uL APTT (22.0-30.0) sec Potassium 3.4 L (3.5-5.1) mmol/L Chloride 115 H (98-107) mmol/L Carbon Dioxide 15 L (22-30) mmol/L BUN 37 H (7-17) mg/dL Creatinine (0.52-1.04) mg/dL Glucose 105 H (74-99) mg/dL AST 49 H (14-36) U/L ALT 49 H (4-34) U/L Total Protein 5.9 L (6.3-8.2) g/dL Albumin 3.3 L (3.5-5.0) g/dL Assessment and Plan Assessment: Patient seen and examined independently. Patient was also seen by Edmar Royal NP and case was discussed. I am in agreement with subjective, physical exam, assessment and plan as written above and amended below. No chest pain, no shortness of breath. We discussed the importance of SNF on discharge. General: non toxic, no distress, appears at stated age Derm: warm, dry Head: atraumatic, normocephalic, symmetric, sling in place over right arm. Eyes: EOMI, no lid lag, anicteric sclera Mouth: no lip lesion, mucus membranes moist Cardiovascular: S1S2 reg, + systolic ejection murmur, positive posterior tibial pulse bilateral, Lungs:Decreased bs bilateral, no rhonchi, no rales , no accessory muscle use Abdominal: soft, nontender to palpation, no guarding, no appreciable organomegaly Ext: no gross muscle atrophy, no edema, no contractures Neuro: CN II-XI grossly intact, no focal neuro deficits Psych: Alert, oriented, appropriate affect
[2021-05-23] MEDS: ASPIRIN 325 MG TAB PO SCH (10:26)
[2021-05-23] MEDS: AMIODARONE 100 MG TAB PO SCH (10:27)
[2021-05-23] MEDS: MAGNESIUM OXIDE 400 MG TAB PO SCH (10:27)
[2021-05-23] MEDS: METOPROLOL SUCCINATE (ER) 25 MG TAB.ER.24H PO SCH (10:27)
[2021-05-23] MEDS: SERTRALINE 25 MG TAB PO SCH (10:27)
[2021-05-23] MEDS: ATORVASTATIN 20 MG TAB PO SCH (10:27)
[2021-05-23] MEDS: HEPARIN SODIUM 1,000 UN/ML (10ML VL) IV PRN (10:40)
--- NOTE | 2021-05-23 11:26 | P.PN ---
Subjective Progress Note Date: 05/23/21 Principal diagnosis: Valvular heart disease This is an 85-year-old female patient who was admitted to the hospital with a diagnosis of acute non-ST patient myocardial infarction she is known to have moderate aortic stenosis. 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 The patient was seen this morning she is chest pain-free which is in process of getting an echocardiogram to assess the exact severity of the aortic stenosis. She does have developed a significant systolic murmur was decrease in the intensity of S2. She denies any shortness of breath or dizziness or lightheadedness. Currently she is on heparin IV. She is also known to have paroxysmal atrial fibrillation and she was receiving oral anticoagulation as an outpatient. Objective - Vital Signs Vital signs: Vital Signs Temp 98.0 F 05/23/21 08:00 Pulse 114 H 05/23/21 08:00 Resp 18 05/23/21 08:00 BP 112/68 05/23/21 08:00 Pulse Ox 97 05/23/21 08:00 Intake & Output 05/22/21 05/23/21 05/23/21 18:59 06:59 18:59 Intake Total 148.802 314.874 340.457 Balance 148.802 314.874 340.457 Weight 54.5 kg Intake: Intake, IV Titration 148.802 94.874 100.457 Amount Heparin Sod,Pork in 0.45% 148.802 44.874 100.457 NaCl 25,000 unit In 0.45 % NaCl 1 250ml.bag @ 12 UNITS/KG/HR 7.62 mls/hr IV .Q24H [facility] Rx#: [id number] Sodium Chloride 0.9% 1, 50 000 ml @ 75 mls/hr IV . [id number] [facility] Rx#:[id number] Oral 0 220 240 Other: Voiding Method Diaper # Voids 1 1 1 # Bowel Movements 1 1 1 - Constitutional General appearance: Present: no acute distress - Respiratory Respiratory: bilateral: diminished - Cardiovascular Rhythm: regular Heart sounds: normal: S1, S2 Abnormal Heart Sounds: Present: systolic murmur - Labs CBC & Chem 7: 05/23/21 07:44 05/23/21 07:44 Labs: Abnormal Lab Results - Last 24 Hours (Table) 05/22/21 05/22/21 05/22/21 Range/Units 17:19 17:19 22:11 RBC (3.80-5.40) m/uL Hgb (11.4-16.0) gm/dL Hct (34.0-46.0) % RDW (11.5-15.5) % Plt Count (150-450) k/uL APTT 41.6 H 66.2 H (22.0-30.0) sec Potassium 3.3 L (3.5-5.1) mmol/L Chloride 114 H (98-107) mmol/L Carbon Dioxide 18 L (22-30) mmol/L BUN 43 H (7-17) mg/dL Creatinine 1.13 H (0.52-1.04) mg/dL Glucose (74-99) mg/dL AST 63 H (14-36) U/L ALT 52 H (4-34) U/L Total Protein 5.8 L (6.3-8.2) g/dL Albumin 3.3 L (3.5-5.0) g/dL 05/23/21 05/23/21 Range/Units 07:44 07:44 RBC 3.35 L (3.80-5.40) m/uL Hgb 10.4 L (11.4-16.0) gm/dL Hct 32.2 L (34.0-46.0) % RDW 16.1 H (11.5-15.5) % Plt Count 121 L (150-450) k/uL APTT (22.0-30.0) sec Potassium 3.4 L (3.5-5.1) mmol/L Chloride 115 H (98-107) mmol/L Carbon Dioxide 15 L (22-30) mmol/L BUN 37 H (7-17) mg/dL Creatinine (0.52-1.04) mg/dL Glucose 105 H (74-99) mg/dL AST 49 H (14-36) U/L ALT 49 H (4-34) U/L Total Protein 5.9 L (6.3-8.2) g/dL Albumin 3.3 L (3.5-5.0) g/dL Assessment and Plan Assessment: Assessment #1 acute coronary syndrome #2 aortic stenosis #3 paroxysmal atrial fibrillation #4 acute renal failure #5 multiple comorbid conditions Plan #1 continue the conservative medical approach #2 follow-up on the echocardiogram #3 continue heparin for additional 24 hours #4 follow-up with the patient
[2021-05-23] MEDS: HEPARIN SOD,PORK IN 0.45% NACL 25,000 UNIT in 0.45% NACL 1 250ML.BAG IV SCH (12:50)
[2021-05-24] MEDS: LEVOTHYROXINE 75 MCG TAB PO SCH (05:12)
[2021-05-24] MEDS: METOPROLOL SUCCINATE (ER) 25 MG TAB.ER.24H PO SCH (08:25)
[2021-05-24] MEDS: MAGNESIUM OXIDE 400 MG TAB PO SCH (08:25)
[2021-05-24] MEDS: ASPIRIN 325 MG TAB PO SCH (08:25)
[2021-05-24] MEDS: ATORVASTATIN 20 MG TAB PO SCH (08:25)
[2021-05-24] MEDS: AMIODARONE 100 MG TAB PO SCH (08:25)
[2021-05-24] MEDS: SERTRALINE 25 MG TAB PO SCH (08:25)
--- NOTE | 2021-05-24 08:40 | P.PN ---
Subjective Progress Note Date: 05/24/21 Principal diagnosis: Valvular heart disease The patient is a pleasant 85-year-old female patient was coronary artery disease and known chronic total occlusion of the right coronary artery and mild disease involving the left coronary system as well as valvular heart disease with aortic stenosis as well as hypertension and dyslipidemia who was admitted to the hospital with acute non-ST patient myocardial infarction. She was seen this morning. She is chest pain-free. She denies any shortness of breath. She still on heparin IV which I'm going to continue to we find out ab out the results of the echocardiogram and the need to undergo coronary angiogram at this point or no. Meanwhile I am going to continue the patient on heparin IV. We will follow-up on the echocardiogram. Beside that she is on antiplatelet as well as she is on statin and beta yair and amiodarone. Objective - Vital Signs Vital signs: Vital Signs Temp 98.8 F 05/24/21 04:00 Pulse 60 05/24/21 04:00 Resp 18 05/24/21 04:00 BP 130/78 05/24/21 04:00 Pulse Ox 95 05/24/21 04:00 Intake & Output 05/23/21 05/24/21 05/24/21 18:59 06:59 18:59 Intake Total 485.468 120 Balance 485.468 120 Weight 52 kg Intake: Intake, IV Titration 125.468 Amount Heparin Sod,Pork in 0.45% 125.468 NaCl 25,000 unit In 0.45 % NaCl 1 250ml.bag @ 12 UNITS/KG/HR 7.62 mls/hr IV .Q24H [facility] Rx#: [id number] Oral 360 120 Other: Voiding Method Diaper # Voids 1 2 # Bowel Movements 1 1 - Constitutional General appearance: Present: no acute distress - Respiratory Respiratory: bilateral: diminished - Cardiovascular Heart sounds: normal: S1, S2 Abnormal Heart Sounds: Present: systolic murmur - Labs CBC & Chem 7: 05/23/21 07:44 05/23/21 07:44 Labs: Abnormal Lab Results - Last 24 Hours (Table) 05/23/21 Range/Units 17:28 APTT 59.4 H (22.0-30.0) sec Assessment and Plan Assessment: Assessment #1 acute coronary syndrome #2 aortic stenosis #3 paroxysmal atrial fibrillation #4 acute renal failure #5 multiple comorbid conditions Plan #1 continue the conservative medical approach #2 follow-up on the echocardiogram #3 continue heparin for now #4 further recommendation to follow the echocardiogram
[2021-05-24 08:56] LABS: Calcium 8.8 mg/dL (8.4-10.2)
[2021-05-24 09:04] LABS: Anisocytosis Slight; HCT 29.9 % (34.0-46.0); HGB 10.2 gm/dL (11.4-16.0); Hypochromasia Slight; MCH 32.6 pg (25.0-35.0); MCV 95.9 fL (80.0-100.0); Mean Platelet Volume 9.4; Platelet Count 169 k/uL (150-450); RBC 3.11 m/uL (3.80-5.40); RDW 16.6 % (11.5-15.5); WBC 7.4 k/uL (3.8-10.6)
[2021-05-24 09:23] LABS: Magnesium 2.1 mg/dL (1.6-2.3); Potassium 3.6 mmol/L (3.5-5.1)
--- NOTE | 2021-05-24 10:32 | P.PN ---
Subjective Progress Note Date: 05/24/21 Hospital course: Patient is a very pleasant 85-year-old Female with a past medical histor of hypertension, hyperlipidemia, atrial fibrillation on anticoagulation with Eliquis, and hypothyroidism. She presented to the emergency department on 05/21/21 with a chief complaint of fall resulting in left hip pain. Patient has had history of recurrent falls and was recently hospitalized on 04/01/21 for a left hip fracture. Patient reports a mechanical fall and denies hitting her head or having any loss of consciousness. Patient states pain to left hip and left shoulder. In the emergency department patient was found to have an acute right clavicular fracture with displacement.Left hip x-ray negative for acute findings. She was also noted to have elevated troponin of 3.390, 3.340, and 3.200. An EKG revealed normal sinus rhythm at 71 bpm T-wave inversion in V2 unchanged from previous EKG 04/01/21 with the exception of rate. ProBNP also elevated at 26,800. Previous transesophageal echocardiogram completed 04/01/21 revealed a normal EF of 55%. Patient was given aspirin, atorvastatin, and metoprolol and started on heparin infusion per ACS protocol. Patient admitted under our services with consultation to cardiology. Physical exam: Patient was seen and fully evaluated at the bedside this morning. Currently we are awaiting echocardiogram results. Reports that he remains pain-free and denies having any complaints including headache, lightheadedness, dizziness, chest pain, palpitations, shortness of breath, or experiencing any numbness/tingling/weakness in her extremities. Sling remains in place to right arm and patient reports right shoulder pain has improved, sensation and movement in right hand remain intact. Vital signs reviewed and stable. General: Nontoxic, no distress and appears stated age. Derm: Skin warm and dry, normal coloration for ethnicity. Head: Atraumatic, normocephalic and symmetric. Eyes: EOMs intact, no lid lag, and anicteric sclera Mouth: no lip lesions, mucus membranes moist Cardiovascular: regular rate and rhythm with normal S1S2, MURMUR present, positive posterior tibial pulses bilaterally, and cap refill < 2 seconds. Lungs: Respirations even, regular, and unlabored on room air. Lungs CTA bilaterally, no rhonchi, no rales, no wheezing, and no accessory muscle usage. Abdominal: soft, nontender to palpation, no guarding, no appreciable organomegaly Ext: Movement and sensation intact. No gross muscle atrophy, no edema, no contractures. Positive deformity and bruising to right Clavicle. Right arm in sling. Neuro: Speech clear, face symmetrical and CN II-XII grossly intact with no noted focal neuro deficits Psych: Alert and oriented to person, place, time, and situation. Appropriate and pleasant affect. Assessment and Plan of Care: NSTEMI Diastolic Heart Failure -Telemetry Monitoring. -Elevated troponin of 3.390, 3.340, and 3.200. -An EKG revealed normal sinus rhythm at 71 bpm T-wave inversion in V2 unchanged from previous EKG 04/01/21 with the exception of rate. -ProBNP also elevated at 26,800. -Continue heparin infusion per ACS protocol. -Continue daily aspirin, atorvastatin, metoprolol. -Repeat echocardiogram to Determine if patient is in systolic versus diastolic heart failure. -Cardiology consulted. Fall resulting in acute right clavicular fracture with displacement -Sling in place -hedis specialist consulted, Recommending continuation of sling Supportive treatment and for patient to follow-up outpatient in his office in 2 weeks -Symptomatic care and pain management, ice packs as needed -Fall precautions -Physical therapy Severe aortic stenosis on prior TTE done in March 2021 -Case was discussed with cardiology on 05/21 who felt that her severe aortic stenosis could be complicating the situation. -Recommend repeat echo to evaluate left ventricular wall motion and aortic stenosis. -Continue with heparin drip until further cleared by cardiology. Hypokalemia, Resolved -We will continue to monitor with repeat a.m. labs. Chronic normocytic normochromic anemia, stable with hemoglobin of 10.2 Hypertension -Monitor vital signs and continue daily medication regimen. Hyperlipidemia Continue daily medication regimen with amiodarone and metoprolol. Atrial fibrillation on anticoagulation with Eliquis Continue amiodarone. Currently holding oral anticoagulant, Eliquis as pt admitted as a NSTEMI and placed on Heparin infusion pending possible cardiac catheterization. Hypothyroidism -Continue daily medication regimen. CODE STATUS: Full code DVT prophylaxis: Heparin Discussed with: Patient and RN Anticipated discharge date: Clinical course to determine Anticipated discharge place: Plans to discharge to [facility] once patient is medically stable A total of 45 minutes was spent on the care of this complex patient more than 50% of the time was spent in counseling and care coordination. Objective - Vital Signs Vital signs: Vital Signs Temp 98.8 F 05/24/21 04:00 Pulse 60 05/24/21 04:00 Resp 18 05/24/21 04:00 BP 130/78 05/24/21 04:00 Pulse Ox 95 05/24/21 04:00 Intake & Output 05/23/21 05/24/21 05/24/21 18:59 06:59 18:59 Intake Total 485.468 120 Balance 485.468 120 Weight 52 kg Intake: Intake, IV Titration 125.468 Amount Heparin Sod,Pork in 0.45% 125.468 NaCl 25,000 unit In 0.45 % NaCl 1 250ml.bag @ 12 UNITS/KG/HR 7.62 mls/hr IV .Q24H [facility] Rx#: [id number] Oral 360 120 Other: Voiding Method Diaper # Voids 1 2 # Bowel Movements 1 1 - Labs CBC & Chem 7: 05/24/21 07:53 05/24/21 07:53 Labs: Abnormal Lab Results - Last 24 Hours (Table) 05/23/21 05/23/21 05/23/21 Range/Units 07:44 07:44 17:28 RBC 3.35 L (3.80-5.40) m/uL Hgb 10.4 L (11.4-16.0) gm/dL Hct 32.2 L (34.0-46.0) % RDW 16.1 H (11.5-15.5) % Plt Count 121 L (150-450) k/uL APTT 59.4 H (22.0-30.0) sec Potassium 3.4 L (3.5-5.1) mmol/L Chloride 115 H (98-107) mmol/L Carbon Dioxide 15 L (22-30) mmol/L BUN 37 H (7-17) mg/dL Glucose 105 H (74-99) mg/dL AST 49 H (14-36) U/L ALT 49 H (4-34) U/L Total Protein 5.9 L (6.3-8.2) g/dL Albumin 3.3 L (3.5-5.0) g/dL
[2021-05-24] MEDS ORDERED: HEPARIN SODIUM 1,000 UN/ML (10ML VL) IV PRN (16:38)
[2021-05-24] MEDS: ACETAMINOPHEN TAB 325 MG TAB PO PRN (16:41)
[2021-05-24] MEDS: HEPARIN SOD,PORK IN 0.45% NACL 25,000 UNIT in 0.45% NACL 1 250ML.BAG IV SCH (18:14)
[2021-05-25] MEDS: LEVOTHYROXINE 75 MCG TAB PO SCH (06:34)
[2021-05-25] MEDS: ATORVASTATIN 20 MG TAB PO SCH (08:33)
[2021-05-25] MEDS: ASPIRIN 325 MG TAB PO SCH (08:33)
[2021-05-25] MEDS: ACETAMINOPHEN TAB 325 MG TAB PO PRN ×2 (08:33→18:54)
[2021-05-25] MEDS: MAGNESIUM OXIDE 400 MG TAB PO SCH (08:33)
[2021-05-25] MEDS: SERTRALINE 25 MG TAB PO SCH (08:33)
[2021-05-25] MEDS: AMIODARONE 100 MG TAB PO SCH (08:33)
[2021-05-25] MEDS: METOPROLOL SUCCINATE (ER) 25 MG TAB.ER.24H PO SCH (08:33)
--- NOTE | 2021-05-25 09:42 | P.PN ---
Subjective Progress Note Date: 05/25/21 HISTORY OF PRESENT ILLNESS: This is a pleasant 85-year-old female past medical history significant for paroxysmal atrial fibrillation on long-term anticoagulation with Eliquis, hypertension, dyslipidemia, aortic stenosis CAD with CUSTOMER ASSISTANCE ASSOCIATE of RCA as well as mild disease of the left and hypothyroidism. She follows in the office with Dr. Guzman. Patient initially came to the hospital at the end of March with symptoms of shortness breath and dyspnea on exertion and was found to have VT at [place] and therefore heart catheterization was recommended which showed a CUSTOMER ASSISTANCE ASSOCIATE of the RCA and only mild irregularities of the left system. She also has moderate to severe aortic stenosis with GILBERT performed at that time which showed some discrepancies between plan admit her. Valve area and velocities. She was discharged home and treated medically however over the last week she has been noticing episodes of dyspnea on exertion. She denies any chest pain or pressure. She apparently also had a mechanical fall where she just "fell off balance" and denies any actual lightheadedness. Unfortunately she broke her right clavicle. She denies any current chest pain or pressure and feels comfortable sitting in bed however feels that usually if she gets up and does something she will feel short of breath. EKG shows normal sinus rhythm, LVH with nonspecific T-wave inversions aVL, V1 through V2. Blood work shows white blood cell count 10.8, hemoglobin 10.7, platelets 142, bicarb 15, creatinine 1.89, AST 138, ALP 77, total bilirubin 1.4, troponin 3.3, 3.3, 3.2. ProBNP is noted to be elevated at 26,000. Her creatinine was normal in March, they have been contrast-induced nephropathy from heart catheterization. 05/23/2021 This is an 85-year-old female patient who was admitted to the hospital with a diagnosis of acute non-ST patient myocardial infarction she is known to have moderate aortic stenosis. 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 The patient was seen this morning she is chest pain-free which is in process of getting an echocardiogram to assess the exact severity of the aortic stenosis. She does have developed a significant systolic murmur was decrease in the intensity of S2. She denies any shortness of breath or dizziness or lightheadedness. Currently she is on heparin IV. She is also known to have paroxysmal atrial fibrillation and she was receiving oral anticoagulation as an outpatient. 05/24/2021 She was seen this morning. She is chest pain-free. She denies any shortness of breath. She still on heparin IV which I'm going to continue to we find out about the results of the echocardiogram and the need to undergo coronary angio gram at this point or no. Meanwhile I am going to continue the patient on heparin IV. We will follow-up on the echocardiogram. Beside that she is on antiplatelet as well as she is on statin and beta yair and amiodarone. 05/25/2021 Patient examined this morning at the bedside. She denies chest pain or pressure. Denies shortness of breath. Vital signs are stable. She remains on IV heparin. Echo is still pending. PHYSICAL EXAM: VITAL SIGNS: Reviewed. GENERAL: Well-developed in no acute distress. NECK: Supple. No JVD or thyromegaly LUNGS: Respirations even and unlabored. Lungs essentially clear to auscultation bilaterally. HEART: Regular rate and rhythm. S1 and S2 heard. Systolic murmur noted. EXTREMITIES: Normal range of motion. No clubbing or cyanosis. Peripheral pulses intact. No lower extremity edema ASSESSMENT: NSTEMI Severe aortic stenosis Paroxysmal atrial fibrillation, on anticoagulation with Eliquis Fall with acute right clavicle fracture Hypertension Hyperlipidemia PLAN: Awaiting results of 2D echo Continue IV heparin until decision is made regarding cardiac cath Continue additional cardiac medications Further recommendations pending patient course Nurse practitioner note has been reviewed by physician. Signing provider agrees with the documented findings, assessment, and plan of care. Objective - Vital Signs Vital signs: Vital Signs Temp 97.2 F L 05/25/21 08:00 Pulse 53 L 05/25/21 08:00 Resp 16 05/25/21 08:00 BP 146/70 05/25/21 08:00 Pulse Ox 98 05/25/21 08:00 Intake & Output 05/24/21 05/25/21 05/25/21 18:59 06:59 18:59 Intake Total 300 180 Balance 300 180 Intake: Oral 300 180 Other: Voiding Method Diaper # Voids 1 3 # Bowel Movements 1 - Labs CBC & Chem 7: 05/24/21 07:53 05/24/21 07:53 Labs: Abnormal Lab Results - Last 24 Hours (Table) 05/25/21 05/25/21 Range/Units 00:51 06:46 APTT 50.3 H 57.6 H (22.0-30.0) sec
--- NOTE | 2021-05-25 11:15 | P.PN ---
Subjective Progress Note Date: 05/25/21 Pt reports no chest pain at this time. Feels well, at baseline. No dyspnea, palps. Objective - Vital Signs Vital signs: Vital Signs Temp 97.2 F L 05/25/21 08:00 Pulse 53 L 05/25/21 08:00 Resp 16 05/25/21 08:00 BP 146/70 05/25/21 08:00 Pulse Ox 98 05/25/21 08:00 Intake & Output 05/24/21 05/25/21 05/25/21 18:59 06:59 18:59 Intake Total 300 180 0 Balance 300 180 0 Intake: Oral 300 180 0 Other: Voiding Method Diaper Diaper # Voids 1 3 # Bowel Movements 1 - Exam Gen: awake, alert HEENT: normocephalic, atraumatic, good hearing acuity, moist mucous membranes Resp: good air exchange, breathing comfortably with no accessory muscle use CVS: good distal perfusion x 4, GI: soft, NTTP, ND : no SPT, no CVAT, lovelace catheter not present MSK: no pitting edema, no clubbing Neuro: non-focal, moving all extremities Psych: cooperative, euthymic mood - Labs CBC & Chem 7: 05/24/21 07:53 05/24/21 07:53 Labs: Abnormal Lab Results - Last 24 Hours (Table) 05/25/21 05/25/21 Range/Units 00:51 06:46 APTT 50.3 H 57.6 H (22.0-30.0) sec Assessment and Plan Assessment: NSTEMI Diastolic Heart Failure Severe aortic stenosis on prior TTE done in March 2021 -Telemetry Monitoring -Continue heparin infusion per ACS protocol. -Continue daily aspirin, atorvastatin, metoprolol. -Repeat echocardiogram pending -Cardiology consulted. Fall resulting in acute right clavicular fracture with displacement -applied behavior specialist consulted, Recommend sling Supportive treatment outpatient f/u in 2 weeks -Symptomatic care and pain management, ice packs as needed -Fall precautions -Physical therapy Hypertension Hyperlipidemia Atrial fibrillation on anticoagulation with Eliquis Hypothyroidism Continue daily medication regimen: amio, metoprolol, statin, levothyroxine -Currently holding Eliquis while on heparin -Continue metoprolol CODE STATUS: Full code DVT prophylaxis: Heparin Anticipated discharge date: Clinical course to determine Anticipated discharge place: Plans to discharge to [facility] once patient is medically stable
[2021-05-25] MEDS: HEPARIN SOD,PORK IN 0.45% NACL 25,000 UNIT in 0.45% NACL 1 250ML.BAG IV SCH (15:50)
[2021-05-26] MEDS: LEVOTHYROXINE 75 MCG TAB PO SCH (06:26)
[2021-05-26] MEDS: ACETAMINOPHEN TAB 325 MG TAB PO PRN ×2 (06:26→20:41)
[2021-05-26] MEDS: ATORVASTATIN 20 MG TAB PO SCH (08:57)
[2021-05-26] MEDS: METOPROLOL SUCCINATE (ER) 25 MG TAB.ER.24H PO SCH (08:57)
[2021-05-26] MEDS: MAGNESIUM OXIDE 400 MG TAB PO SCH (08:57)
[2021-05-26] MEDS: SERTRALINE 25 MG TAB PO SCH (08:57)
[2021-05-26] MEDS: AMIODARONE 100 MG TAB PO SCH (08:57)
[2021-05-26] MEDS: ASPIRIN 325 MG TAB PO SCH (08:57)
--- NOTE | 2021-05-26 10:09 | P.PN ---
Subjective Progress Note Date: 05/26/21 HISTORY OF PRESENT ILLNESS: This is a pleasant 85-year-old female past medical history significant for paroxysmal atrial fibrillation on long-term anticoagulation with Eliquis, hypertension, dyslipidemia, aortic stenosis CAD with DIFFERENTIAL TESTER of RCA as well as mild disease of the left and hypothyroidism. She follows in the office with Dr. Guzman. Patient initially came to the hospital at the end of March with symptoms of shortness breath and dyspnea on exertion and was found to have VT at [place] and therefore heart catheterization was recommended which showed a DIFFERENTIAL TESTER of the RCA and only mild irregularities of the left system. She also has moderate to severe aortic stenosis with GILBERT performed at that time which showed some discrepancies between plan admit her. Valve area and velocities. She was discharged home and treated medically however over the last week she has been noticing episodes of dyspnea on exertion. She denies any chest pain or pressure. She apparently also had a mechanical fall where she just "fell off balance" and denies any actual lightheadedness. Unfortunately she broke her right clavicle. She denies any current chest pain or pressure and feels comfortable sitting in bed however feels that usually if she gets up and does something she will feel short of breath. EKG shows normal sinus rhythm, LVH with nonspecific T-wave inversions aVL, V1 through V2. Blood work shows white blood cell count 10.8, hemoglobin 10.7, platelets 142, bicarb 15, creatinine 1.89, AST 138, ALP 77, total bilirubin 1.4, troponin 3.3, 3.3, 3.2. ProBNP is noted to be elevated at 26,000. Her creatinine was normal in March, they have been contrast-induced nephropathy from heart catheterization. 05/23/2021 This is an 85-year-old female patient who was admitted to the hospital with a diagnosis of acute non-ST patient myocardial infarction she is known to have moderate aortic stenosis. 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 The patient was seen this morning she is chest pain-free which is in process of getting an echocardiogram to assess the exact severity of the aortic stenosis. She does have developed a significant systolic murmur was decrease in the intensity of S2. She denies any shortness of breath or dizziness or lightheadedness. Currently she is on heparin IV. She is also known to have paroxysmal atrial fibrillation and she was receiving oral anticoagulation as an outpatient. 05/24/2021 She was seen this morning. She is chest pain-free. She denies any shortness of breath. She still on heparin IV which I'm going to continue to we find out about the results of the echocardiogram and the need to undergo coronary angio gram at this point or no. Meanwhile I am going to continue the patient on heparin IV. We will follow-up on the echocardiogram. Beside that she is on antiplatelet as well as she is on statin and beta yair and amiodarone. 05/25/2021 Patient examined this morning at the bedside. She denies chest pain or pressure. Denies shortness of breath. Vital signs are stable. She remains on IV heparin. Echo is still pending. 05/26/2021 Patient examined this morning at the bedside. Patient denies chest pain or pressure. She denies shortness of breath. Echocardiogram reveals ejection fraction 50-55%, moderate aortic stenosis, and no LV wall motion abnormalities. PHYSICAL EXAM: VITAL SIGNS: Reviewed. GENERAL: Well-developed in no acute distress. NECK: Supple. No JVD or thyromegaly LUNGS: Respirations even and unlabored. Lungs essentially clear to auscultation bilaterally. HEART: Regular rate and rhythm. S1 and S2 heard. Systolic murmur noted. EXTREMITIES: Normal range of motion. No clubbing or cyanosis. Peripheral pulses intact. No lower extremity edema ASSESSMENT: NSTEMI Severe aortic stenosis Paroxysmal atrial fibrillation, on anticoagulation with Eliquis Fall with acute right clavicle fracture Hypertension Hyperlipidemia PLAN: No plans for cardiac cath at this time Discontinue IV heparin Resume Eliquis Patient may be discharged home today from a cardiac standpoint. We will sign off. Please reconsult if needed. Nurse practitioner note has been reviewed by physician. Signing provider agrees with the documented findings, assessment, and plan of care. Objective - Vital Signs Vital signs: Vital Signs Temp 97.1 F L 05/26/21 08:00 Pulse 54 L 05/26/21 08:00 Resp 16 05/26/21 08:00 BP 145/56 05/26/21 08:00 Pulse Ox 91 L 05/26/21 08:00 Intake & Output 05/25/21 05/26/21 05/26/21 18:59 06:59 18:59 Intake Total 473.064 180 Balance 473.064 180 Weight 54 kg Intake: Intake, IV Titration 233.064 Amount Heparin Sod,Pork in 0.45% 233.064 NaCl 25,000 unit In 0.45 % NaCl 1 250ml.bag @ 12 UNITS/KG/HR 6.24 mls/hr IV .Q24H [facility] Rx#: [id number] Oral 240 180 Other: Voiding Method Diaper # Voids 1 1 # Bowel Movements 1 1 - Labs CBC & Chem 7: 05/24/21 07:53 05/24/21 07:53
[2021-05-26] MEDS: APIXABAN 5 MG TAB PO SCH ×2 (12:45→20:41)
--- NOTE | 2021-05-26 13:50 | P.PN ---
Subjective Progress Note Date: 05/26/21 No new complaints today. Doing wll, discharge pending Objective - Vital Signs Vital signs: Vital Signs Temp 97.1 F L 05/26/21 08:00 Pulse 58 L 05/26/21 12:00 Resp 16 05/26/21 12:00 BP 159/78 05/26/21 12:00 Pulse Ox 91 L 05/26/21 12:00 Intake & Output 05/25/21 05/26/21 05/26/21 18:59 06:59 18:59 Intake Total 473.064 360 Balance 473.064 360 Weight 54 kg Intake: Intake, IV Titration 233.064 Amount Heparin Sod,Pork in 0.45% 233.064 NaCl 25,000 unit In 0.45 % NaCl 1 250ml.bag @ 12 UNITS/KG/HR 6.24 mls/hr IV .Q24H [facility] Rx#: [id number] Oral 240 360 Other: Voiding Method Diaper Diaper # Voids 1 1 2 # Bowel Movements 1 1 1 - Exam Gen: awake, alert HEENT: normocephalic, atraumatic, good hearing acuity, moist mucous membranes Resp: good air exchange, breathing comfortably with no accessory muscle use CVS: good distal perfusion x 4, GI: soft, NTTP, ND : no SPT, no CVAT, lovelace catheter not present MSK: no pitting edema, no clubbing Neuro: non-focal, moving all extremities Psych: cooperative, euthymic mood - Labs CBC & Chem 7: 05/24/21 07:53 05/24/21 07:53 Assessment and Plan Assessment: NSTEMI Diastolic Heart Failure Severe aortic stenosis on prior TTE done in March 2021 -Telemetry Monitoring -Continue heparin infusion per ACS protocol. -Continue daily aspirin, atorvastatin, metoprolol. -Repeat echocardiogram pending -Cardiology consulted. Fall resulting in acute right clavicular fracture with displacement -mechanical service specialist consulted, Recommend sling Supportive treatment outpatient f/u in 2 weeks -Symptomatic care and pain management, ice packs as needed -Fall precautions -Physical therapy Hypertension Hyperlipidemia Atrial fibrillation on anticoagulation with Eliquis Hypothyroidism Continue daily medication regimen: amio, metoprolol, statin, levothyroxine -Currently holding Eliquis while on heparin -Continue metoprolol CODE STATUS: Full code DVT prophylaxis: Heparin Anticipated discharge date: Clinical course to determine Anticipated discharge place: Plans to discharge to [facility] once patient is medically stable
[2021-05-27] MEDS: ACETAMINOPHEN TAB 325 MG TAB PO PRN ×2 (04:18→10:55)
[2021-05-27] MEDS: LEVOTHYROXINE 75 MCG TAB PO SCH (06:15)
[2021-05-27 07:58] VITALS: RESP 18
[2021-05-27] MEDS: ATORVASTATIN 20 MG TAB PO SCH (07:59)
[2021-05-27] MEDS: APIXABAN 5 MG TAB PO SCH (07:59)
[2021-05-27] MEDS: METOPROLOL SUCCINATE (ER) 25 MG TAB.ER.24H PO SCH (07:59)
[2021-05-27] MEDS: MAGNESIUM OXIDE 400 MG TAB PO SCH (07:59)
[2021-05-27] MEDS: AMIODARONE 100 MG TAB PO SCH (07:59)
[2021-05-27] MEDS: SERTRALINE 25 MG TAB PO SCH (07:59)
[2021-05-27] MEDS ORDERED: ASPIRIN 81 MG PO SCH (09:00)
[2021-05-27 10:43] VITALS: BMI 20.8
[2021-05-27] MEDS ORDERED: HYDROcodone/APAP 5-325MG 1 EACH TAB PO PRN (11:12)
[2021-05-27 12:04] VITALS: BP 149/79; PULSE 61; TEMP 97.9
--- NOTE | 2021-05-27 13:24 | ECHOF ---
MEASUREMENTS HEIGHT: 162.6 cm WEIGHT: 54.4 kg BP: 136/70 RVIDd: 3.4 cm IVSd: 1.3 cm LVIDd: 3.9 cm LVPWd: 1.5 cm IVSs: 2.1 cm LVIDs: 2.4 cm LVPWs: 1.6 cm LAESV Index (A-L): 45.91 ml/m Ao Diam: 3.4 cm AV Cusp: 1.5 cm MV EXCURSION: 19.207 mm MV EF SLOPE: 114 mm/s EPSS: 1.6 cm AV maxP.22 mmHg AVmeanP.40 mmHg AR PHT: 349 ms RAP: 20.00 mmHg RVSP: 55.95 mmHg FINDINGS Atrial fibrillation This was a technically adequate study. The left ventricular size is normal. There is mild concentric left ventricular hypertrophy. Overall left ventricular systolic function is low-normal with, an EF between 50 - 55%. Left ventricular fillimg pressure cannot be estimated due to Atrial fibrillation. The right ventricle is mildly enlarged. LA is severely dilated >40 ml/m2 The right atrium was not well visualized. Interatrial and interventricular septum intact. There is moderate aortic valve sclerosis. There is mild aortic regurgitation. There is moderate aortic stenosis present. Peak/mean gradient across the Aortic Valve is 37.22mmHg / 21.40mmHg. The pulmonic valve was not well visualized. There is no pulmonic regurgitation present. The aortic root size is normal. The inferior vena cava is dilated with poor inspiratory collapse which is consistent with estimated right atrial pressure of 20 mmHg. There is no pericardial effusion. CONCLUSIONS 1. There is mild concentric left ventricular hypertrophy. 2. Overall left ventricular systolic function is low-normal with, an EF between 50 - 55%. 3. Left ventricular fillimg pressure cannot be estimated due to Atrial fibrillation. 4. The right ventricle is mildly enlarged. 5. LA is severely dilated >40 ml/m2. 6. There is moderate aortic valve sclerosis. 7. There is mild aortic regurgitation. 8. There is moderate aortic stenosis present. 9. Peak/mean gradient across the Aortic Valve is 37.22mmHg / 21.40mmHg. 10. Moderate mitral regurgitation is present. 11. Moderate mitral regurgitation is present. 12. There is moderate pulmonary hypertension. 13. The inferior vena cava is dilated with poor inspiratory collapse which is consistent with estimated right atrial pressure of 20 mmHg. 14. There is no pericardial effusion. MTDD
--- NOTE | 2021-05-27 13:40 | P.DS ---
Providers Date of admission: 05/21/21 18:49 Expected date of discharge: 05/27/21 Attending physician: Anali Pruett DO Consults: 05/22/21 07:54 Consult Physician Routine Consulting Provider: Wilfredo Lebron Consult Reason/Comments: displaced right clavicle Do you want consulting provider notified?: Yes Primary care physician: Susan [facility] Course: NSTEMI Diastolic Heart Failure Severe aortic stenosis on prior TTE done in March 2021 -Admitted with Telemetry Monitoring and cardiology consult. Continued home daily aspirin, atorva, and metoprolol. Started on heparin. Echo repeated and showed low normal EF, no WMA, mod MR, elevated RVSP. However, cardiology did not feel LHC was warranted during this admission. Pts trops peaked at 3.4, and downtrended. Aspirin added to home medication regimen, pt will f/u with cardiology on discharge. Fall resulting in acute right clavicular fracture with displacement -patient accounts specialist consulted, Recommend sling Supportive treatment outpatient f/u in 2 weeks Hypertension Hyperlipidemia Atrial fibrillation on anticoagulation with Eliquis Hypothyroidism Continued daily medication regimen: amio, metoprolol, statin, levothyroxine -Restarted eliquis on discharge I spent 42 minutes coordinating this complex discharge. Assessment: Gen: awake, alert HEENT: normocephalic, atraumatic, good hearing acuity, moist mucous membranes Resp: good air exchange, breathing comfortably with no accessory muscle use CVS: good distal perfusion x 4, GI: soft, NTTP, ND : no SPT, no CVAT, lovelace catheter not present MSK: no pitting edema, no clubbing Neuro: non-focal, moving all extremities Psych: cooperative, euthymic mood Patient Condition at Discharge: Good Plan - Discharge Summary Discharge Rx Participant: No New Discharge Prescriptions: New Aspirin 81 mg PO DAILY #30 tab Continue Levothyroxine Sodium [Synthroid] 75 mcg PO DAILY Sertraline [Zoloft] 25 mg PO DAILY Rosuvastatin [Crestor] 10 mg PO DAILY Metoprolol Succinate (ER) [Toprol XL] 25 mg PO DAILY #30 tab Furosemide [Lasix] 20 mg PO DAILY #0 Apixaban [Eliquis] 5 mg PO BID Amiodarone [Cordarone] 100 mg PO DAILY #30 tab Magnesium Oxide [Mag-Ox] 400 mg PO DAILY Discharge Medication List Apixaban [Eliquis] 5 mg PO BID 03/31/21 [History] Levothyroxine Sodium [Synthroid] 75 mcg PO DAILY 03/31/21 [History] Rosuvastatin [Crestor] 10 mg PO DAILY 03/31/21 [History] Sertraline [Zoloft] 25 mg PO DAILY 03/31/21 [History] Amiodarone [Cordarone] 100 mg PO DAILY #30 tab 04/02/21 [Rx] Furosemide [Lasix] 20 mg PO DAILY #0 04/02/21 [Rx] Metoprolol Succinate (ER) [Toprol XL] 25 mg PO DAILY #30 tab 04/02/21 [Rx] Magnesium Oxide [Mag-Ox] 400 mg PO DAILY 05/21/21 [History] Aspirin 81 mg PO DAILY #30 tab 05/26/21 [Rx] Follow up Appointment(s)/Referral(s): Susan Luz MD [Primary Care Provider] - 1-2 days Wilfredo Lebron DO [Doctor of Osteopathic Medicine] - 2 Weeks Activity/Diet/Wound Care/Special Instructions: Orthopedic Discharge Instructions: 1. Utilize arm sling 2. Non weightbearing right upper extremity 3. Ice the shoulder as needed 4. Plan for follow up with Dr. Lebron at [facility] in 2 weeks, Discharge Disposition: TRANSFER TO SNF/ECF
== END 2021-05-27 14:19 | DRG 280 ==
LOC: EC 16:14 → 3SCARD 18:49
PROVIDERS: ADMIT Internal Medicine; ATTEND Internal Medicine
DX: I21.4 Non-ST elevation (NSTEMI) myocardial infarction (principal); I50.33 Acute on chronic diastolic (congestive) heart failure; S72.002A Fracture of unspecified part of neck of left femur, initial encounter for closed fracture; E87.2 Acidosis; N17.9 Acute kidney failure, unspecified; D64.9 Anemia, unspecified; E03.9 Hypothyroidism, unspecified; E78.5 Hyperlipidemia, unspecified; E83.42 Hypomagnesemia; F03.90 Unspecified dementia, unspecified severity, without behavioral disturbance, psychotic disturbance, mood disturbance, and anxiety; F17.200 Nicotine dependence, unspecified, uncomplicated; I11.0 Hypertensive heart disease with heart failure; I25.10 Atherosclerotic heart disease of native coronary artery without angina pectoris; I25.82 Chronic total occlusion of coronary artery; I35.0 Nonrheumatic aortic (valve) stenosis; I48.0 Paroxysmal atrial fibrillation; S42.021A Displaced fracture of shaft of right clavicle, initial encounter for closed fracture; W01.0XXA Fall on same level from slipping, tripping and stumbling without subsequent striking against object, initial encounter; Z20.822 Contact with and (suspected) exposure to COVID-19; Z79.01 Long term (current) use of anticoagulants; Z79.890 Hormone replacement therapy; Z79.899 Other long term (current) drug therapy; R29.6 Repeated falls; R74.01 Elevation of levels of liver transaminase levels
CPT/HCPCS: 36415; 71046; 73502; 80048; 80053; 80061; 81001; 82550; 83605; 83735; 83880; 84484; 85025; 85027; 85610; 85730; 87324; 87635; 93005; 93306; 94760; 96365; 96366; 99291